=== PATIENT | male | born 1960 | race Caucasian/White ===

== ENCOUNTER 2018-09-02 21:05 | Emergency (ER) | payer OTHER ==
[~2018-09-02] VITALS: Ht 188 cm; Wt 79.4 kg
[2018-09-02 21:20] VITALS: BP 133/75
--- NOTE | 2018-09-02 21:23 | NUR ---
TO LOBBY A/W BED AMBULATORY
--- NOTE | 2018-09-02 22:21 | NUR ---
PT TAKEN TO BED 2
[2018-09-02] MEDS ORDERED: KETOROLAC 30 MG/ML VIAL IM ONE (22:35)
[2018-09-02] MEDS ORDERED: HYDROcodone/APAP 5/325 MG 1 TAB TAB PO ONE (22:35)
[2018-09-02] MEDS ORDERED: predniSONE 20 MG TAB PO ONE (22:35)
--- NOTE | 2018-09-02 22:55 | NUR ---
PT TO ED WITH C/O BILATERAL RASH INCREASING IN SEVERITY X 3 DAYS. RED, CRACKED RASH NOTED TO BILATERAL HANDS/ARMS. SOME BLEEDING NOTED UPON MOVEMENT. PT PLACED INTO BED, PENDING MD VIRAMONTES.
--- NOTE | 2018-09-02 23:16 | NUR ---
OFFERED PT H[employer] RESOURCE PACKET. PT HAS WEATHER APPROPRAITE CLOTHING. MEAL AND BUSPASS OFFERED UPON D/C.
--- NOTE | 2018-09-02 23:30 | NUR ---
Patient discharged with v/s stable. Written and verbal after care instructions given and explained. Patient alert, oriented and verbalized understanding of instructions. Ambulatory with steady gait. All questions addressed prior to discharge. ID band removed. Patient advised to follow up with PMD. Rx of KEFLEX, NORCO, PREDNISONE given. Patient educated on indication of medication including possible reaction and side effects. Opportunity to ask questions provided and answered.
[2018-09-02 23:31] VITALS: BP 133/75
== END 2018-09-02 23:30 | disposition home or self-care (01) ==
LOC: MED 21:05 → EDBD 21:05 → MED 23:30
DX: L23.9 Allergic contact dermatitis, unspecified cause (principal)
CPT/HCPCS: 99283; J1885; J7512

== ENCOUNTER 2018-09-15 09:47 | Inpatient (IN) | payer OTHER ==
[~2018-09-15] VITALS: Ht 188 cm; Wt 76.3 kg
[2018-09-15 09:50] VITALS: BP 174/102
--- NOTE | 2018-09-15 09:58 | NUR ---
PT AMBULATED TO BED 7
--- NOTE | 2018-09-15 10:04 | NUR ---
PT BIB SELF C/O LEFT HAND PAIN X 1 DAY. LT HAND SWOLLEN, ERYTHEMA, MACERATED, WITH SKIN TEARS. PT REPORTS 10/10 PAIN TO LT HAND THAT RADIATES UP LT ARM AND PAIN INCREASES WITH HAND MOVEMENT. PT ADMITS TO DRINKING AND USING ILLEGAL DRUGS ON "OCCASION". VSS. ER TO SEE PT. MED HX: CHEMICAL DAVIS TO HANDS X 12 YRS
[2018-09-15] MEDS ORDERED: NACL 0.9% 2,000 ML IV SCH (10:12)
[2018-09-15] MEDS ORDERED: DEXAMETHASONE 10 MG/ML VIAL IVP ONE (10:15)
[2018-09-15] MEDS ORDERED: VANCOMYCIN 1,000 MG in DEXTROSE 5% 250 ML IV ONE (10:15)
[2018-09-15] MEDS ORDERED: PIPERACILLIN/TAZOBACTAM 3.375 GM in DEXT 5% MINI-BAG PLUS 50 ML IV ONE (10:15)
[2018-09-15] MEDS ORDERED: diphenhydrAMINE 50 MG/ML VIAL IVP ONE (10:15)
[2018-09-15] MEDS ORDERED: HYDROcodone/APAP 5/325 MG 1 TAB TAB PO ONE (10:15)
[2018-09-15] MEDS ORDERED: hydrOXYzine HCL 25 MG TAB PO ONE (10:15)
--- NOTE | 2018-09-15 10:25 | NUR ---
PT WENT TO X-RAY AT THIS TIME
--- NOTE | 2018-09-15 10:33 | NUR ---
RT AT BEDSIDE AT THIS TIME FOR ABG
--- NOTE | 2018-09-15 10:40 | NUR ---
LAB AT BEDSIDE
[2018-09-15] MEDS ORDERED: VANCOMYCIN 1,000 MG VIAL ONE ×2 (10:55→23:29)
[2018-09-15] MEDS ORDERED: PIPERACILLIN/TAZOBACTAM 3.375 GM VIAL IV ONE (10:55)
[2018-09-15 10:56] LABS: BASOPHILS # (AUTO) 0.1 K/uL (0.00-0.22); BASOPHILS % (AUTO) 0.9 % (0.0-2.0); EOSINOPHILS # (AUTO) 0.2 K/uL (0-0.4); EOSINOPHILS % (AUTO) 2.9 % (0.0-4.0); HEMATOCRIT 36.6 % (36-52); HEMOGLOBIN 12.4 g/dL (12.0-18.0); LYMPHOCYTES # (AUTO) 1.8 K/uL (2.0-11.5); LYMPHOCYTES % (AUTO) 22.2 % (20.5-51.1); MEAN CORPUSCULAR HEMOGLOBIN 31 pg (27-31); MEAN CORPUSCULAR HGB CONC 34 g/dL (33-37); MEAN CORPUSCULAR VOLUME 92.7 fL (80-94); MONOCYTES # (AUTO) 0.6 K/uL (0.8-1.0); MONOCYTES % (AUTO) 7.4 % (1.7-9.3); NEUTROPHILS # (AUTO) 5.5 K/uL (1.8-7.7); NEUTROPHILS % (AUTO) 66.6 % (42.2-75.2); PLATELET COUNT (AUTO) 280 K/uL (140-450); RED BLOOD CELL COUNT(AUTO) 3.95 MIL/uL (4.20-6.10); RED CELL DISTRIBUTION WIDTH 15.7 % (11.6-13.7); WHITE BLOOD COUNT (AUTO) 8.3 K/uL (4.8-10.8)
[2018-09-15 11:06] LABS: PROTHROMBIN TIME 9.2 secs (10.8-13.4)
[2018-09-15 11:09] LABS: ACETONE, SERUM NEGATIVE (NEGATIVE)
[2018-09-15 11:18] LABS: ANION GAP 13.7 (8-16); CARBON DIOXIDE 24.8 mmol/L (21-32); CHLORIDE 100 mmol/L (98-107); CREATININE 0.9 mg/dL (0.7-1.3); GFR ARICAN-AMERICAN 111 mL/min (>90); GLUCOSE 96 mg/dL (74-106); POTASSIUM 3.5 mmol/L (3.5-5.1); SODIUM SERUM 135 mmol/L (136-145); UREA NITROGEN, BLOOD 15 mg/dL (7-18)
--- NOTE | 2018-09-15 11:19 | NUR ---
PT IN BED, C/O HAND PAIN AT 10/10, ADMINISTERED PO NORCO. PT HYPERTENSIVE AT 201/118, DENEIS CP, SOB, N/V, HEADACHE, OR VISUAL DISTRUBANCES. ER MD NOTIFIED.
[2018-09-15] MEDS ORDERED: cloNIDine 0.1 MG TAB PO ONE (11:20)
--- NOTE | 2018-09-15 11:20 | NUR ---
PT ATTEMPTING TO PROVIDE URINE SAMPLE VIA URINAL AT THIS TIME
[2018-09-15 11:22] LABS: ALBUMIN 3.3 g/dL (3.4-5.0); ASPARTATE AMINOTRANSFERASE 22 U/L (15-37); MAGNESIUM 1.7 mg/dL (1.8-2.4); TOTAL BILIRUBIN 0.3 mg/dL (0.0-1.0)
--- NOTE | 2018-09-15 11:25 | NUR ---
CALLED PHARMACY FOR LISINOPRIL
[2018-09-15 11:50] LABS: URIC ACID 6.8 mg/dL (2.6-7.2)
--- NOTE | 2018-09-15 12:24 | NUR ---
PT O2 DESATING DOWN TO 92%, PT SLEEPING IN BED, AROUSABLE TO NAME, ADJUSTED PT IN BED, PUT IN HIGH COLMENARES'S, O2 SAT UP TO 95%, RR EVEN, NON-LABORED, BREATH SOUNDS CLEAR.
[2018-09-15 12:25] LABS: APPEARANCE,URINE HAZY (CLEAR); BILIRUBIN,URINE NEGATIVE (NEGATIVE); BLOOD, URINE NEGATIVE (NEGATIVE); COLOR,URINE YELLOW (YELLOW); LEUKOCYTE ESTERASE ,URINE NEGATIVE (NEGATIVE); NITRITE, URINE NEGATIVE (NEGATIVE); UGLUCOSE NEGATIVE (NEGATIVE)
[2018-09-15] MEDS ORDERED: MORPHINE SULFATE 4 MG/ML SYR IVP PRN (12:35)
[2018-09-15] MEDS ORDERED: ACETAMINOPHEN 325 MG TAB PO PRN (12:35)
[2018-09-15] MEDS ORDERED: MORPHINE SULFATE 2 MG/ML SYR IVP PRN (12:35)
[2018-09-15] MEDS ORDERED: LORazepam 2 MG/ML VIAL IVP PRN (12:35)
[2018-09-15] MEDS ORDERED: VANCOMYCIN PER PHARMACY MC PRN (12:40)
[2018-09-15] MEDS ORDERED: ZOLPIDEM 5 MG TAB PO PRN (12:40)
[2018-09-15 12:50] LABS: BARBITURATE, URINE NEGATIVE ng/ml (NEG <=200); BENZODIAZEPINE, URINE NEGATIVE ng/mL (NEG <=200); CANNABINOID, URINE POSITIVE ng/mL (NEG <=50); COCAINE, URINE NEGATIVE ng/mL (NEG <=300); OPIATE, URINE NEGATIVE ng/mL (NEG <=2000); PHENCYCLIDINE SCREEN,URINE NEGATIVE ng/mL (NEG <=25)
[2018-09-15 13:15] VITALS: BP 155/81
--- NOTE | 2018-09-15 13:15 | NUR ---
PATIENT ARRIVED UNIT VIA [facility] ACCOMPANIED BY WINIFRED CORTEZ RN. PATIENT IS AAOX4. DENIED PAIN AND SOB AT THIS TIME. RESPIRATION ON RA. NO SIGNS OF DISTRESS NOTED. IV ON R ARM 22G, CLEAN AND INTACT, INFUSING PER MD ORDER. REDNESS ON L HAND NOTED, WARM TO TOUCH. DRY SCABS ON BOTH ARMS NOTED. ABLE TO AMBULATE WITH STANDBY ASSISTANCE. TRANSFERRED PATIENT FROM [facility] TO BED AND POSITIONED PATIENT COMFORTABLY. ORIENTED PATIENT TO THE ROOM, AND HOW TO USE THE CALL LIGHT, TV, BED REMOTE, BATHROOM AND TELEPHONE. PATIENT VERBALIZED OK. VITAL SIGNS TAKEN AND MRSA NARES COLLECTED. PATIENT VERBALIZED UNDERSTANDING. PROVIDED URANAL. BED IN LOW POSITION AND CALL LIGHT WITHIN REACH. INSTRUCTED PATIENT TO USE THE CALL LIGHT FOR ANY ASSISTANCE AND PATIENT WAS AWARE.
--- NOTE | 2018-09-15 13:15 | NUR ---
Patient will be admitted to care of HENDERSON. Admited to MED/SURG VIA [facility] W/ VSS. Will go to room 111A. Belongings list completed. Report to BETITO ZARAGOZA.
[2018-09-15] MEDS: NACL 0.9% 1,000 ML IV SCH ×2 (13:21→23:33)
--- NOTE | 2018-09-15 13:21 | NUR ---
STARTED IVF PER MD ORDER, PATIENT SAID HE FEELS VERY TIRED AND WOULD LIKE TO TAKE A NAP. NO SIGNS OF DISTRESS NOTED. SAFETY MEASURES IN PLACE. BED IN LOW POSITION AND CALL LIGHT WITHIN REACH. INSTRUCTED PATIENT TO USE THE CALL LIGHT FOR ANY ASSISTANCE. PATIENT WAS AWARE.
--- NOTE | 2018-09-15 15:35 | NUR ---
PATIENT COMPLAINED 6/10 PAIN ON HIS LEFT HAND, ADMINISTERED PRN MORPHINE PER MD ORDER, PATIENT TOLERATED WELL. PATIENT IS RESTING ON BED AT THIS TIME. SAFETY MEASURES IN PLACE. BED IN LOW POSITION AND CALL LIGHT WITHIN REACH. INSTRUCTED PATIENT TO USE THE CALL LIGHT FOR ANY ASSISTANCE AND PATIENT WAS AWARE.
--- NOTE | 2018-09-15 15:55 | NUR ---
PAGED DR VILLANUEVA FOR PATIENT BP 167/91. PATIENT IS RESTING ON BED. DENIED PAIN. NO SIGNS OF DISTRESS NOTED. SAFETY MEASURES IN PLACE.
[2018-09-15 16:00] VITALS: BP 167/91
--- NOTE | 2018-09-15 16:02 | NUR ---
RECEIVED A CALL BACK FROM DR VILLANUEVA. NOTIFIED DR VILLANUEVA THAT PATIENT'S BP 167/91 AND PULSE 76. PATIENT DENIED PAIN. PATIENT RECEIVED ONE DOSE OF CATAPRES 0.1 MG IN ER. RECEIVED TORB ORDER FROM DR VILLANUEVA THAT ADMINISTER CATAPRES 0.2 MG PRN Q8H FOR SYSTOLIC BP [address] VILLANUEVA ALSO ORDERED TO ADMINISTER ONE DOSE OF CATAPRES 0.2 MG TO PATIENT FOR HIS BP NOW. READ BACK AND CONFIRMED ORDER WITH DR VILLANUEVA.
[2018-09-15] MEDS ORDERED: cloNIDine 0.1 MG TAB PO PRN (16:05)
--- NOTE | 2018-09-15 16:23 | NUR ---
I CALLED DR VILLANUEVA REGARDING THE OBS STATUS ,EXPLAIN PT IS QUALIFIED FOR INPT STATUS ,PER DR VILLANUEVA OK TO CHANGE IT AND CHANGED TO INPT STATUS.
--- NOTE | 2018-09-15 16:29 | NUR ---
ADMINISTERED PRN CATAPRES PER MD ORDER FOR PATIENT'S BP 167/91 AND PULSE 76, PATIENT TOLERATED WELL. PATIENT IS RESTING ON BED AT THIS TIME. PATIENT STATED THAT HIS BROTHER IS COMING TO VISIT HIM AND HE WANTS TO KNOW WHAT ROOM IS HE IN. INFORMED THAT HE IS IN ROOM 111A. PATIENT VERBALIZED OK. SAFETY MEASURES IN PLACE. BED IN LOW POSITION AND CALL LIGHT WITHIN REACH.
--- NOTE | 2018-09-15 17:36 | NUR ---
PATIENT IS RESTING ON BED AT THIS TIME. AROUSABLE TO VOICE. RESPIRATION EVEN AND UNLABORED ON RA. NO SIGNS OF DISTRESS NOTED. SAFETY MEASURES IN PLACE. BED IN LOW POSITION AND CALL LIGHT WITHIN REACH. INSTRUCTED PATIENT TO USE THE CALL LIGHT FOR ANY ASSISTANCE AND PATIENT WAS AWARE.
--- NOTE | 2018-09-15 18:04 | NUR ---
REASSESSED BP AND RECEIVED 150/75 AND PULSE 75. PATIENT IS EATING DINNER ON BED AT THIS TIME. DENIED PAIN AND SOB. NO SIGNS OF DISTRESS NOTED. SAFETY MEASURES IN PLACE. BED IN LOW POSITION AND CALL LIGHT WITHIN REACH. INSTRUCTED PATIENT TO USE THE CALL LIGHT FOR ANY ASSISTANCE AND PATIENT WAS AWARE.
--- NOTE | 2018-09-15 19:18 | NUR ---
ENDORSED PATIENT AT BEDSIDE TO FINISHED HARDWARE ERECTOR NURSE FOR CONTINUITY OF CARE. PATIENT IS AWAKE AND APPLYING LOTION ON HIS HANDS. NO SIGNS OF DISTRESS NOTED. SAFETY MEASURES IN PLACE. BED IN LOW POSITION AND CALL LIGHT WITHIN REACH.
--- NOTE | 2018-09-15 19:20 | NUR ---
Received endorsement from AM shift RN; patient A/Ox4, able to make needs known, bedrest. Introduced self, updated board. No SOB or distress noted, on room air. IV site on right forearm, 22 gauge, intact, running IVF at 80mL/hr. Edema noted on left hand and skin dryness on bilateral upper extremities. Bed in the lowest position, call light within reach. Initial assessment done. Will continue to monitor.
--- NOTE | 2018-09-15 21:50 | NUR ---
Rounds done; patient asleep, visible chest rise and fall noted.
[2018-09-15] MEDS: VANCOMYCIN 1GM/DEXT 5% PREMIX 200 ML IV SCH (23:33)
--- NOTE | 2018-09-15 23:55 | NUR ---
Vitals taken, no distress noted. Patient asleep, visible chest rise and fall noted.
[2018-09-16] VITALS: BP 135/79
--- NOTE | 2018-09-16 02:00 | NUR ---
Checks made; no distress noted.
--- NOTE | 2018-09-16 04:50 | NUR ---
Frequent check made; patient asleep, eyes closed, visible chest rise and fall noted.
--- NOTE | 2018-09-16 07:10 | NUR ---
Endorsed patient to AM shift RN for continuity of care; patient in stable condition.
--- NOTE | 2018-09-16 07:20 | NUR ---
PATIENT WAS SLEEPING COMFORTABLY, EASILY AROUSABLE BY NAME. RESPIRATION EVEN, UNLABOR ON ROOM AIR. SKIN DRY AND WARM. IV PATENT AND INTACT. DENIED PAIN, SOB. PLAN OF CARE WAS DISCUSSED WITH PATIENT. BED AT LOW POSITION, SIDE RAILS UP. CALL LIGHT WITHIN REACH.
[2018-09-16 08:00] VITALS: BP 157/82
[2018-09-16] MEDS ORDERED: LISINOPRIL 20 MG TAB PO ONE (09:00)
[2018-09-16 09:02] LABS: ANION GAP 13.6 (8-16); CARBON DIOXIDE 24.3 mmol/L (21-32); CREATININE 0.8 mg/dL (0.7-1.3); POTASSIUM 3.9 mmol/L (3.5-5.1)
--- NOTE | 2018-09-16 09:10 | NUR ---
PATIENT HAS BEEN SCREENED AND CATEGORIZED LOW NUTRITION RISK. PATIENT WILL BE SEEN WITHIN 7 DAYS OF ADMISSION. 09/22/[address]
--- NOTE | 2018-09-16 10:00 | NUR ---
PATIENT WAS AWAKE, ALERT. RESPIRATION EVEN, UNLABOR ON ROOM AIR. NO DISTRESS NOTED AT THIS TIME
--- NOTE | 2018-09-16 10:21 | NUR ---
WOUND CARE EVALUATION NOTE: PT. HAS NO OPEN ACTIVE WOUND, ALL SKIN INTACT. RIGHT HAND CELLULITIS FROM WRIST DOWN, SKIN INTACT, ERYTHEMA, SWELLING GOOD ROM. RECOMMENDATIONS: -KEEP RIGHT UPPER ARM ELEVATED TOLERATED -KEEP L/R HANDS SKIN GOOD MOISTURE AND CLEAN AT ALL TIMES -OFFLOAD BILATERAL HEELS BY PLACING PILLOWS UNDER CALVES UNLESS OTHERWISE CONTRAINDICATED -PRESSURE REDISTRIBUTION SURFACE THERAPY -CONTINUE TO FOLLOW RD RECOMMENDATIONS
[2018-09-16] MEDS ORDERED: MAG SULF 2000 MG/WATER PREMIX 50 ML IV SCH (11:00)
[2018-09-16] MEDS ORDERED: SULF-59 PO (11:09)
--- NOTE | 2018-09-16 11:38 | NUR ---
FOLLOWUP APPOINTMENT MADE TO SEE PCP [phone] SPOKE WITH BAILEY, APPOINTMENT DONE ON 10/08/18 2PM AT [address], [place] [address]. COPY OF FOLLOW-UP APPOINTMENT GIVEN TO PATIENT, VERBALIZED UNDERSTANDING.
[2018-09-16] MEDS: VANCOMYCIN 1GM/DEXT 5% PREMIX 200 ML IV SCH (12:00)
--- NOTE | 2018-09-16 12:00 | NUR ---
PATIENT WAS SLEEPING COMFORTABLY. RESPIRATION EVEN, UNLABOR ON ROOM AIR. NO DISTRESS NOTED AT THIS TIME
--- NOTE | 2018-09-16 13:30 | NUR ---
PATIENT WAS FOUND WALKING THE HALLWAY, REFUSED TO GO BACK TO HIS ROOM. MULTIPLE ATTEMPTS WERE MADE TO EXPLAIN TO PATIENT THAT HE IS AT RISK FOR FALL, HE NEEDS TO GO BACK TO HIS ROOM. PATIENT STARTED SCREAMING "LEAVE ME ALONE". SECURITY WAS CALLED. DR. AVALOS WAS MADE AWARE. CARE PROVIDER MAGY COBIAN WAS CALLED AND LEFT A VOICEMAIL REGARDING HIS CONDITION. Addendum: 09/16/18 at 1558 by Josselyn Adams RN WRONG PATIENT
--- NOTE | 2018-09-16 14:00 | NUR ---
PATIENT WAS SLEEPING COMFORTABLY. RESPIRATION EVEN, UNLABOR ON ROOM AIR. NO DISTRESS NOTED
--- NOTE | 2018-09-16 14:30 | NUR ---
PATIENT WAS AGITATED, REFUSED TO GO BACK TO HIS ROOM. PATIENT WAS ESCORTED BACK TO ROOM BY SECURITY. MEDS WERE GIVEN PER ORDER. PATIENT WAS SCREAMING, KICKING, AND HITTING STAFF. DR. AVALOS WAS AT BEDSIDE. Addendum: 09/16/18 at 1558 by Josselyn Adams RN WRONG PATIENT
--- NOTE | 2018-09-16 15:30 | NUR ---
DISCHARGE INSTRUCTION AND PRESCRIPTION WERE GIVEN AND EXPLAINED TO PATIENT. PATIENT VERBALIZED UNDERSTANDING. IV WAS REMOVED, CATHETER INTACT, NO ACTIVE BLEEDING SEEN. PATIENT STATED THAT HE WILL GO BACK TO HIS [facility] ON [address]. BUS PASS WAS PROVIDED. PATIENT WAS ESCORTED OUT BY STAFF. ALL BELONGINGS WERE TAKEN WITH PATIENT. PATIENT IS STABLE AT THIS TIME
== END 2018-09-16 15:30 | disposition home or self-care (01) | DRG 383 ==
LOC: MED 09:47 → MTU 12:38 → OBSVTOIN 15:59 → INTOOBSV 15:59 → OBSVTOIN 16:02
PROVIDERS: ADMIT Internal Medicine Pulmonary Disease; ATTEND Internal Medicine Pulmonary Disease
DX: L03.114 Cellulitis of left upper limb (principal); E83.42 Hypomagnesemia; F10.129 Alcohol abuse with intoxication, unspecified; I10 Essential (primary) hypertension; F19.10 Other psychoactive substance abuse, uncomplicated
CPT/HCPCS: 96361; 96365; 96375; 99285; G0378; 36415; 36600; 73110; 73130; 80048; 80053; 80202; 80305; 81003; 82009; 82550; 82803; 83605; 83735; 84484; 84550; 85025; 85610; 85651; 86140; 87040; 87081; 87086; 93005; C1758; G0482; J1100; J1200; J2270; J2543; J3370; J3475; J7030; J7060

== ENCOUNTER 2018-10-02 09:05 | Inpatient (IN) | payer OTHER ==
[~2018-10-02] VITALS: Ht 188 cm; Wt 77.6 kg
[~2018-10-02 09:05] MED LIST: SULF-59 PO
--- NOTE | 2018-10-02 09:11 | NUR ---
Patient ambulated to bed 1. RN evaluating patient at bedside.
--- NOTE | 2018-10-02 09:13 | NUR ---
PT BIB SELF C/O SWELLING, REDNESS AND PAINFUL TO BOTH HANDS ON AND OFF X 12 YEARS. GETTING WORSE LAST NIGHT. PT TOOK ABX( UNABLE TO RECALL NAME) . 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 . DENIES N/V/D; SKIN IS PINK/WARM/DRY; AAOX4 WITH EVEN AND STEADY GAIT; LUNGS CLEAR BL; HR EVEN AND REGULAR; PT DENIES ANY FEVER, CP, SOB, OR COUGH AT THIS TIME; PATIENT STATES PAIN OF 8/10 AT THIS TIME; VSS; PATIENT POSITIONED FOR COMFORT; HOB ELEVATED; BEDRAILS UP X2; BED DOWN. ER MD MADE AWARE OF PT STATUS. PT REFUSED BP CHECK DUE TO HIS SWOLLEN HANDS.
[2018-10-02 10:58] LABS: BASOPHILS # (AUTO) 0.1 K/uL (0.00-0.22); BASOPHILS % (AUTO) 0.9 % (0.0-2.0); EOSINOPHILS # (AUTO) 0.2 K/uL (0-0.4); EOSINOPHILS % (AUTO) 2.8 % (0.0-4.0); HEMATOCRIT 38.9 % (36-52); LYMPHOCYTES # (AUTO) 1.5 K/uL (2.0-11.5); MEAN CORPUSCULAR HEMOGLOBIN 31 pg (27-31); MEAN CORPUSCULAR HGB CONC 34 g/dL (33-37); MEAN CORPUSCULAR VOLUME 93.7 fL (80-94); MONOCYTES # (AUTO) 0.6 K/uL (0.8-1.0); MONOCYTES % (AUTO) 6.8 % (1.7-9.3); NEUTROPHILS # (AUTO) 6.4 K/uL (1.8-7.7); NEUTROPHILS % (AUTO) 72.5 % (42.2-75.2); PLATELET COUNT (AUTO) 329 K/uL (140-450); RED BLOOD CELL COUNT(AUTO) 4.15 MIL/uL (4.20-6.10); RED CELL DISTRIBUTION WIDTH 15.4 % (11.6-13.7); WHITE BLOOD COUNT (AUTO) 8.8 K/uL (4.8-10.8)
--- NOTE | 2018-10-02 11:00 | NUR ---
PER DR. MAGALLON, KEEP PT NPO.
[2018-10-02 11:05] LABS: ANION GAP 15.4 (8-16); CARBON DIOXIDE 23.3 mmol/L (21-32); CREATININE 0.9 mg/dL (0.7-1.3); POTASSIUM 3.7 mmol/L (3.5-5.1)
[2018-10-02 11:10] LABS: ALBUMIN 3.4 g/dL (3.4-5.0); TOTAL BILIRUBIN 0.4 mg/dL (0.0-1.0)
--- NOTE | 2018-10-02 11:21 | NUR ---
PER ADMITTING, SECURITY HAVE PATIENT'S BIKE.
[2018-10-02] MEDS ORDERED: MORPHINE SULFATE 4 MG/ML SYR IVP ONE ×2 (12:05→12:20)
[2018-10-02] MEDS ORDERED: cefTRIAXone 1,000 MG VIAL ONE (12:31)
--- NOTE | 2018-10-02 12:55 | NUR ---
EDUCATED PT OF V/S AND INFORMED PT OF POC. PT VERBALIZED UNDERSTANDING. OK TO CHECK BP AT THIS TIME. WILL CONTINUE TO MONITOR
--- NOTE | 2018-10-02 13:49 | NUR ---
Pt transferred to Med/Surg via W/C WITH MILA CABRAL .
[2018-10-02 14:00] VITALS: BP 158/77
--- NOTE | 2018-10-02 14:00 | NUR ---
Patient will be admitted to care of DR. BOB. Admited to . Will go to room 115. Belongings list completed. Report to MILA COSTA.
--- NOTE | 2018-10-02 14:00 | NUR ---
RECEIVED PT FROM ED NURSE MISHA. PT IS AWAKE AND ALERT, NO S/S OF ACUTE DISTRESS NOTED. PT IS ON ROOM AIR. SKIN IS INTACT, HOWEVER, BILATERAL HANDS ARE NOTED TO BE SWOLLEN, RED, AND DRY, THERE IS SOME SKIN FISSURING. PT C/O 10/10 PAIN IN HIS HANDS. WILL PAGE DR BOB FOR PAIN MEDICINE ORDERS. IV SITE IS IN THE LFA 20 G. PT IS ABLE TO AMBULATE INDEPENDENTLY. CALL LIGHT GIVEN WITHIN REACH, MRSA NARES SWAB TAKEN. WILL CONTINUE TO MONITOR.
--- NOTE | 2018-10-02 14:10 | NUR ---
PT REPORTS BEING VERY HUNGRY, SAYS HE DID NOT HAVE ANYTHING TO EAT IN THE ED. SANDWICH AND OJ PROVIDED. WILL PAGE DR BOB REGARDING DIET ORDERS.
--- NOTE | 2018-10-02 14:47 | NUR ---
PAGED DR BBO FOR DIET ORDER AND PAIN MEDICINE. PT IS C/O SEVERE PAIN (12/24) IN HIS HANDS. AWAITING CALL BACK.
--- NOTE | 2018-10-02 15:15 | NUR ---
PHOTOS TAKEN OF BILATERAL HANDS. I TALKED TO DIRECTOR KOHLER ABOUT WHETHER PT NEEDS A SPECIFIC TOPICAL SKIN CARE. WE CONSULTED THE WOUND CARE NURSE, YARIEL, SHE RECOMMENDS PT'S HANDS TO REMAIN OPEN TO AIR. WILL ASK DR BOB IF HE WOULD LIKE A WOUND CARE EVALUATION.
--- NOTE | 2018-10-02 16:32 | NUR ---
STILL WAITING FOR MD TO RETURN PAGE, REGARDING PAIN MEDICINE AND DIET ORDER FOR PT.
--- NOTE | 2018-10-02 16:40 | NUR ---
PT IS SLEEPING AT THIS TIME.
--- NOTE | 2018-10-02 17:15 | NUR ---
DR BOB RETURNED MY CALL, HE GAVE MEDICATION AND DIETARY ORDERS FOR PT ADMISSION. ALSO ORDERED A WOUND CARE EVALUATION, AND A CBC/BMP FOR TOMORROW MORNING.
[2018-10-02] MEDS ORDERED: ACETAMINOPHEN 650 MG/20.3 ML UDC PO PRN (17:20)
[2018-10-02] MEDS ORDERED: ONDANSETRON 4 MG/2 ML VIAL IVP PRN (17:20)
[2018-10-02] MEDS: HYDROcodone/APAP 5/325 MG 1 TAB TAB PO PRN ×2 (18:01→23:17)
--- NOTE | 2018-10-02 18:27 | NUR ---
PT EATING DINNER AT THIS TIME.
--- NOTE | 2018-10-02 19:20 | NUR ---
RECEIVED BEDSIDE REPORT FROM DAY SHIFT NURSE. PATIENT IS AWAKE, ALERT, AND COOPERATIVE. RESPIRATION EVEN UNLABORED ON ROOM AIR. NO DISTRESS NOTED. SKIN IS WARM AND DRY. BILATERAL HAND CELLULITIS NOTED. IV PATENT AND INTACT. SALINE LOCKED. PLAN OF CARE WAS DISCUSSED. ALL SAFETY MEASURES IN PLACE. CALL LIGHT WITHIN REACH AND VERBALIZES ITS USE. WILL CONTINUE TO MONITOR.
--- NOTE | 2018-10-02 19:20 | NUR ---
PT ENDORSED TO ACCOUNT SERVICE ASSOCIATE IN STABLE CONDITION.
--- NOTE | 2018-10-02 20:00 | NUR ---
INITIAL ASSESSMENT DONE. VITALS WERE TAKEN. NO DISTRESS NOTED. PATIENT IN STABLE CONDITION. WILL CONTINUE TO MONITOR.
[2018-10-02] MEDS: methylPREDNISolone SS 40 MG/ML VIAL IVP SCH (20:29)
--- NOTE | 2018-10-02 21:00 | NUR ---
ALL SCHEDULED MEDS WERE GIVEN PER ORDER. NO ASE NOTED.WILL CONTINUE TO MONITOR.
--- NOTE | 2018-10-02 22:30 | NUR ---
PATIENT IN BED WATCHING TV RESPIRATION EVEN UNLABORED ON ROOM AIR. NO DISTRESS NOTED. WILL CONTINUE TO MONITOR.
--- NOTE | 2018-10-02 23:15 | NUR ---
PATIENT COMPLAINED OF PAIN 8/10 IN HIS LEFT HAND. PRN PAIN MEDS ADMINISTERED PER ORDER. WILL CONTINUE TO MONITOR.
[2018-10-03] VITALS: BP 139/80
--- NOTE | 2018-10-03 | NUR ---
VITALS WERE TAKEN. REASSESSED PAIN. PATIENT VERBALIZE REDUCE PAIN 3/10. PATIENT IN STABLE CONDITION. WILL CONTINUE TO MONITOR.
--- NOTE | 2018-10-03 02:00 | NUR ---
CHECKED PATIENT. PATIENT SLEEPING RESPIRATION EVEN UNLABORED ON ROOM AIR. NO DISTRESS NOTED. WILL CONTINUE TO MONITOR.
[2018-10-03] MEDS: methylPREDNISolone SS 40 MG/ML VIAL IVP SCH ×3 (05:07→20:17)
[2018-10-03] MEDS: HYDROcodone/APAP 5/325 MG 1 TAB TAB PO PRN ×3 (05:13→13:53)
--- NOTE | 2018-10-03 05:14 | NUR ---
ALL SCHEDULED MEDS GIVEN PER ORDER. PATIENT COMPLAINED OF HAND PAIN /10. PAIN MED ADMINISTERED PER ORDER. WILL CONTINUE TO MONITOR.
[2018-10-03 07:09] LABS: BASOPHILS % (AUTO) 0.3 % (0.0-2.0); EOSINOPHILS % (AUTO) 0.1 % (0.0-4.0); HEMATOCRIT 42.2 % (36-52); LYMPHOCYTES # (AUTO) 0.7 K/uL (2.0-11.5); LYMPHOCYTES % (AUTO) 15.1 % (20.5-51.1); MEAN CORPUSCULAR HEMOGLOBIN 31 pg (27-31); MEAN CORPUSCULAR HGB CONC 33 g/dL (33-37); MEAN CORPUSCULAR VOLUME 94.5 fL (80-94); MONOCYTES # (AUTO) 0.1 K/uL (0.8-1.0); MONOCYTES % (AUTO) 2.2 % (1.7-9.3); NEUTROPHILS # (AUTO) 3.8 K/uL (1.8-7.7); NEUTROPHILS % (AUTO) 82.3 % (42.2-75.2); PLATELET COUNT (AUTO) 331 K/uL (140-450); RED BLOOD CELL COUNT(AUTO) 4.46 MIL/uL (4.20-6.10); RED CELL DISTRIBUTION WIDTH 15.4 % (11.6-13.7); WHITE BLOOD COUNT (AUTO) 4.6 K/uL (4.8-10.8)
[2018-10-03 07:23] LABS: POTASSIUM 4.5 mmol/L (3.5-5.1)
--- NOTE | 2018-10-03 07:26 | NUR ---
ENDORSED PATIENT TO DAY SHIFT NURSE FOR CONTINUITY OF CARE. PATIENT IN STABLE CONDITION.
--- NOTE | 2018-10-03 07:28 | NUR ---
RECEIVED BEDSIDE REPORT FROM MILA TIERNEY. PATIENT ON MED SURG FLOOR WITH STANDARD PRECAUTIONS IN PLACE. PATIENT AAOX4, ON ROOM AIR, NO DISTRESS NOTED. PATIENT AMBULATORY AND CONTINENT. B/L HANDS CELLULITIS. IV ON L FA 20G, SALINE LOCK, IV PATENT AND INTACT. BED IN LOW POSITION, CALL LIGHT WITHIN REACH, SIDE RAILS X2 UP
[2018-10-03 07:35] LABS: ANION GAP 12.9 (8-16); CARBON DIOXIDE 26.6 mmol/L (21-32); CREATININE 0.9 mg/dL (0.7-1.3)
[2018-10-03 08:00] VITALS: BP 149/91
--- NOTE | 2018-10-03 08:45 | NUR ---
PATIENT HAS BEEN SCREENED AND CATEGORIZED HIGH NUTRITION RISK. PATIENT WILL BE SEEN WITHIN 7 DAYS OF ADMISSION. 10/09/18 Addendum: 10/03/18 at [address] PATIENT HAS BEEN SCREENED AND CATEGORIZED LOW NUTRITION RISK. PATIENT WILL BE SEEN WITHIN 7 DAYS OF ADMISSION. 10/09/18
[2018-10-03] MEDS: LISINOPRIL 20 MG TAB PO SCH (09:15)
--- NOTE | 2018-10-03 09:15 | NUR ---
ADMINISTERED SCHEDULED MED. PATIENT TOLERATED WELL
--- NOTE | 2018-10-03 12:35 | NUR ---
PATIENT SITTING UP IN BED EATING LUNCH. ADMINISTERED SCHEDULED MEDS. PATIENT TOLERATED WELL
--- NOTE | 2018-10-03 14:03 | NUR ---
PATIENT AMBULATED TO RESTROOM, ON ROOM AIR, NO DISTRESS NOTED
[2018-10-03 16:00] VITALS: BP 158/72
--- NOTE | 2018-10-03 17:03 | NUR ---
PATIENT WATCHING TV, ON ROOM AIR, NO DISTRESS NOTED
[2018-10-03] MEDS: oxyCODONE 5 MG TAB PO PRN (18:09)
--- NOTE | 2018-10-03 19:25 | NUR ---
RECEIVED PT IN STABLE CONDITION FROM AM NURSE. AWAKE,ALERT AND ORIENTED X4. MED SURG PT. WITH NO C/O ANY PAIN A THIS TIME. KEVIN HANDS SWOLLEN WITH CELLULITIS. PLAN OF CARE DISCUSSED AND VERBALIZED UNDERSTANDING. BED ON LOW POSITION. FREQ CHECK NEEDED. CALL LIGHT AND URINAL PLACED WITHIN EASY REACH. WILL CONTINUE TO MONITOR.
--- NOTE | 2018-10-03 21:00 | NUR ---
ANTIBIOTICS DUE GIVEN. NO C/O ANY DISCOMFORT NOTED.
[2018-10-04 00:10] VITALS: BP 158/78
[2018-10-04] MEDS: HYDROcodone/APAP 5/325 MG 1 TAB TAB PO PRN ×3 (00:13→16:55)
--- NOTE | 2018-10-04 01:28 | NUR ---
MADE ROUNDS. PT IS ASLEEP. NO S/S OF ANY DISCOMFORT NOTED.
--- NOTE | 2018-10-04 02:38 | NUR ---
MADE ROUNDS. PT IS ASLEEP. NO S/S OF ANY DISCOMFORT NOTED.
--- NOTE | 2018-10-04 04:00 | NUR ---
MADE ROUNDS. PT IS ASLEEP. NO S/S OF ANY DISCOMFORT NOTED.
[2018-10-04] MEDS: methylPREDNISolone SS 40 MG/ML VIAL IVP SCH ×3 (04:35→20:49)
[2018-10-04] MEDS: oxyCODONE 5 MG TAB PO PRN ×5 (04:44→23:53)
--- NOTE | 2018-10-04 04:44 | NUR ---
PT AWAKE,C/O PAIN 9/10 ON BILATERAL HANDS CELLULITIS, MEDICATE ORDERED. WILL CONTINUE TO MONITOR.
--- NOTE | 2018-10-04 06:38 | NUR ---
WILL ENDORSED PT IN STABLE CONDITION TO AM NURSE.
--- NOTE | 2018-10-04 07:20 | NUR ---
RECEIVED PT IN STABLE CONDITION FROM IMAGE ARCHIVIST NURSE. PT AWAKE,ALERT AND ORIENTED X4. PT C/O PAIN, WILL ASSESS AND MEDICATED PRN. KEVIN HANDS SWOLLEN WITH CELLULITIS. UPDATED BOARD. IV SITE INTACT, PATENT, SALINE LOCKED. PLAN OF CARE DISCUSSED WITH PT, HE VERBALIZED UNDERSTANDING. SAFETY PRECAUTION IN PLACE, BED ON LOW POSITION. CALL LIGHT AND URINAL PLACED WITHIN EASY REACH. WILL CONTINUE TO MONITOR.
[2018-10-04 07:40] LABS: ALBUMIN 2.9 g/dL (3.4-5.0); CARBON DIOXIDE 28.1 mmol/L (21-32); CREATININE 0.9 mg/dL (0.7-1.3); POTASSIUM 4.1 mmol/L (3.5-5.1); TOTAL BILIRUBIN 0.2 mg/dL (0.0-1.0)
[2018-10-04 07:55] LABS: BASOPHILS % (AUTO) 0.3 % (0.0-2.0); EOSINOPHILS % (AUTO) 0.1 % (0.0-4.0); HEMATOCRIT 40.4 % (36-52); HEMOGLOBIN 13.1 g/dL (12.0-18.0); LYMPHOCYTES # (AUTO) 1.2 K/uL (2.0-11.5); MEAN CORPUSCULAR HEMOGLOBIN 31 pg (27-31); MEAN CORPUSCULAR HGB CONC 33 g/dL (33-37); MEAN CORPUSCULAR VOLUME 94.2 fL (80-94); MONOCYTES # (AUTO) 0.5 K/uL (0.8-1.0); MONOCYTES % (AUTO) 3.6 % (1.7-9.3); NEUTROPHILS # (AUTO) 12.6 K/uL (1.8-7.7); PLATELET COUNT (AUTO) 338 K/uL (140-450); RED BLOOD CELL COUNT(AUTO) 4.29 MIL/uL (4.20-6.10); RED CELL DISTRIBUTION WIDTH 15.2 % (11.6-13.7); WHITE BLOOD COUNT (AUTO) 14.4 K/uL (4.8-10.8)
[2018-10-04 08:00] VITALS: BP 157/90
[2018-10-04 08:44] LABS: NEUTROPHILS % (AUTO) 87.6 % (42.2-75.2)
[2018-10-04 08:45] LABS: LYMPHOCYTES % (AUTO) 8.4 % (20.5-51.1)
[2018-10-04] MEDS: LISINOPRIL 20 MG TAB PO SCH (10:26)
--- NOTE | 2018-10-04 10:28 | NUR ---
ORDERED MEDICATION GIVEN. PATIENT TOLERATED IT WELL. PRN PAIN MEDICATION GIVEN. PATIENT TOLERATED IT. NO COMPLAINTS AT THIS TIME. WILL CONTINUE TO MONITOR PATIENT.
--- NOTE | 2018-10-04 12:54 | NUR ---
PRN PAIN MEDICATION GIVEN FOR BILATERAL HAND CELLULITIS. PATIENT TOLERATED IT. NO COMPLAINTS AT THIS TIME. SAFETY AND ISOLATION PRECAUTIONS IN PLACE, WILL CONTINUE TO MONITOR PATIENT. Addendum: 10/04/18 at 1940 by Dann Toledo RN ORDERED ANTIBIOTICS AND MEDICATION GIVEN. PATIENT TOLERATED IT WELL.
--- NOTE | 2018-10-04 14:59 | NUR ---
PRN PAIN MEDICATION GIVEN FOR BILATERAL HAND CELLULITIS. PATIENT TOLERATED IT. NO COMPLAINTS AT THIS TIME. SAFETY AND ISOLATION PRECAUTIONS IN PLACE, WILL CONTINUE TO MONITOR PATIENT.
[2018-10-04] MEDS ORDERED: CHLORHEXADINE GLUC 2% CLOTH TP SCH (15:00)
[2018-10-04 16:00] VITALS: BP 155/73
--- NOTE | 2018-10-04 19:27 | NUR ---
RECEIVED PT IN STABLE CONDITION FROM AM NURSE. MED SURG PT. AWAKE,ALERT AND ORIENTED X4. WITH NO C/O ANY DISCOMFORT /PAIN AT THIS TIME. KEVIN HANDS STILL SWOLLEN, WITH CELLULITIS. HL ON THE LT FAG#20. CLEAR AND PATENT. BED ON LOW POSITION, IGLES[place] RAILS UP X2 AND CALL LIGHT PLACED WITHIN EASY REACH. ON CONTACT ISOLATION FOR MRSA NARES POSITIVE. PT MADE AWARE ABOUT THE TREATMENT TO BE GIVEN. WILL CONTINUE TO MONITOR.
--- NOTE | 2018-10-04 19:27 | NUR ---
REPORT GIVEN TO INTELLECTUAL PROPERTY LEGAL ASSISTANT EMIGDIO AT BEDSIDE FOR CONTINUITY OF CARE, PATIENT IN STABLE CONDITION. ENDORSED PAIN REASSESSMENT TO INTELLECTUAL PROPERTY LEGAL ASSISTANT NURSE.
[2018-10-04] MEDS ORDERED: NICOTINE TRANSD SYS 14 MG/24 HR PATCH TD SCH (20:00)
--- NOTE | 2018-10-04 20:00 | NUR ---
PT ASKED FOR SOME PUDDING. PROVIDED. TOLERATED WELL.
[2018-10-04] MEDS ORDERED: MUPIROCIN CA NASAL 2% 1GM TUBE NS SCH (21:00)
--- NOTE | 2018-10-04 21:00 | NUR ---
ALL NIGHT MEDS GIVEN SCHEDULED.
--- NOTE | 2018-10-04 22:20 | NUR ---
MADE ROUNDS. SLEEPING. NO S/S OF ANY DISCOMFORT NOTED.
[2018-10-04 23:50] VITALS: BP 155/88
--- NOTE | 2018-10-05 00:01 | NUR ---
PT IN STABLE CONDITION. JUST MEDICATED FOR PAIN FEW MINUTES AGO.
--- NOTE | 2018-10-05 02:00 | NUR ---
MADE ROUNDS. PT IS ASLEEP. NO S/S OF ANY PAIN NOTED.
--- NOTE | 2018-10-05 03:40 | NUR ---
MADE ROUNDS. PT ASLEEP. NO DISCOMFORT NOTED. WILL CONTINUE TO MONITOR.
[2018-10-05] MEDS: HYDROcodone/APAP 5/325 MG 1 TAB TAB PO PRN (04:44)
[2018-10-05] MEDS: methylPREDNISolone SS 40 MG/ML VIAL IVP SCH (05:31)
--- NOTE | 2018-10-05 07:25 | NUR ---
ENDORSED PT IN STABLE CONDITION TO AM NURSE.
--- NOTE | 2018-10-05 07:30 | NUR ---
RECEIVED BEDSIDE REPORT FROM CLOTHING TRADES WORKERS NURSE. PT IS AWAKE AND ALERT, NO S/S OF ANY ACUTE DISTRESS OR SOB NOTED. PT IS ON ROOM AIR. SKIN OVER THE BILATERAL HANDS APPEARS TO BE PEELING CELLULITIC SWELLING IS GOING DOWN. OTHERWISE SKIN IS INTACT. PT IS ON CONTACT ISOLATION FOR MRSA NARES. UNIVERSAL FALL PRECAUTIONS IN PLACE. CALL LIGHT IS WITHIN REACH.
[2018-10-05 07:39] LABS: BASOPHILS % (AUTO) 0.4 % (0.0-2.0); HEMATOCRIT 41.4 % (36-52); HEMOGLOBIN 13.6 g/dL (12.0-18.0); LYMPHOCYTES # (AUTO) 1.5 K/uL (2.0-11.5); LYMPHOCYTES % (AUTO) 12.9 % (20.5-51.1); MEAN CORPUSCULAR HEMOGLOBIN 31 pg (27-31); MEAN CORPUSCULAR HGB CONC 33 g/dL (33-37); MEAN CORPUSCULAR VOLUME 94.7 fL (80-94); MONOCYTES # (AUTO) 0.5 K/uL (0.8-1.0); MONOCYTES % (AUTO) 4.3 % (1.7-9.3); NEUTROPHILS # (AUTO) 9.9 K/uL (1.8-7.7); NEUTROPHILS % (AUTO) 82.4 % (42.2-75.2); PLATELET COUNT (AUTO) 330 K/uL (140-450); RED BLOOD CELL COUNT(AUTO) 4.37 MIL/uL (4.20-6.10); RED CELL DISTRIBUTION WIDTH 15.3 % (11.6-13.7)
[2018-10-05 07:46] LABS: ALBUMIN 3.1 g/dL (3.4-5.0); ANION GAP 12.3 (8-16); POTASSIUM 4.3 mmol/L (3.5-5.1); TOTAL BILIRUBIN 0.2 mg/dL (0.0-1.0)
[2018-10-05 08:00] VITALS: BP 163/85
--- NOTE | 2018-10-05 08:38 | NUR ---
DUE TO CHANGE IN BASSEM SCORE PATIENT HAS BEEN RESCREENED AND CATEGORIZED MODERATE NUTRITION RISK. PATIENT WILL BE SEEN WITHIN 3-5 DAYS FROM ADMISSION. 10/05/18- 10/07/[address]
--- NOTE | 2018-10-05 08:42 | NUR ---
PT'S IV HAS INFILTRATED. WILL ATTEMPT TO INSERT A NEW ONE.
[2018-10-05] MEDS ORDERED: NICOTINE TRANSD SYS 14 MG/24 HR PATCH TD SCH (09:00)
--- NOTE | 2018-10-05 09:20 | NUR ---
SPOKE TO WOUND CARE NURSE YARIEL, SHE RECOMMENDS WIPING PT'S HANDS WITH SKIN PREP TO HELP FORM A PROTECTIVE FILM OVER PT'S SKIN.
[2018-10-05] MEDS: LISINOPRIL 20 MG TAB PO SCH (09:34)
--- NOTE | 2018-10-05 09:40 | NUR ---
AM MEDS ADMINISTERED. PT TOLERATED WELL. APPLIED SKIN PREP ONTO PT'S HANDS PER WOUND CARE NURSE'S RECOMMENDATION.
--- NOTE | 2018-10-05 10:00 | NUR ---
WOUND CARE EVALUATION NOTE: REASON FOR EVALUATION: BILATERAL HANDS CELLULITIS SKIN ASSESSMENT DONE WITH THIS 58 Y/O MALE PT ADMITTED TO [facility] WITH INITIAL DX OF BILATERAL HANDS CELLULITIS. PT IS AWAKE. SKIN IS WARM AND DRY, POOR PERSONAL HYGIENE OBSERVED. BUE /HANDS ERYTHEMA. BLE FEW HAIR GROWTH, NO EDEMA TO BILATERAL LOWER LEGS. PLAN OF CARE DISCUSSED WITH PRIMARY RN AND PT. PT. VERBALIZING UNDERSTANDING INTEGUMENTARY: -XEROSIS TO BLE -BILATERAL DORSAL HANDS, WRISTS FOREARMS RED, SWELLING AND WARM TO TOUCH, DRY SCALY SKIN, NO OPEN ACTIVE WOUNDS RECOMMENDATIONS: -CLEANSE UPPER EXTREMITIES WITH SOAP AND WATER, PAT DRY, APPLY SKIN PREP BID AND OPEN TO AIR DRY - CLEANSE LOWER EXTREMITIES WITH SOAP AND WATER, PAT DRY, APPLY HYDRAGUARD BID OPEN TO AIR DRY -CONTINUE TO FOLLOW RD RECOMMENDATIONS ALL ABOVE RECOMMENDATIONS DISCUSSED WITH PRIMARY RN PLEASE CONTACT WOUND CARE NURSE FOR ANY QUESTION AND CHANGE OF WOUND CONDITION.
--- NOTE | 2018-10-05 10:36 | NUR ---
PT SEEN BY DR VILLANUEVA. DR VILLANUEVA SAYS THE PT WILL BE DISCHARGED TODAY, THUS THERE IS NO NEED TO INSERT A NEW IV.
--- NOTE | 2018-10-05 12:40 | NUR ---
PT HAS DC'D. PT WAS GIVEN DISCHARGE INSTRUCTIONS AND INFORMATION ABOUT COMMUNITY RESOURCES. HE WAS ALSO GIVEN A SMALL SUPPLY OF HYGIENE PRODUCTS. WRIST BANDS WERE REMOVED, IV SITE DC'D. PT LEFT WITH ALL HIS BELONGINGS IN STABLE CONDITION VIA HIS BICYCLE.
[2018-10-05] MEDS ORDERED: HYDRAGUARD CREAM TP SCH (13:00)
--- NOTE | 2018-10-05 14:24 | NUR ---
FOLLOW-UP APPOINTMENT MADE TO SEE PRIMARY DOCTOR BETTY ARIAS [phone] SPOKE WITH ERWIN. APPOINTMENT IS ON OCT 28, 2018 AT 0900 AT [address] [place] [address]. CALLED PATIENT AND LEFT A MESSAGE @ [phone].
== END 2018-10-05 12:40 | disposition home or self-care (01) | DRG 385 ==
LOC: MED 09:05 → MTU 13:24
PROVIDERS: ADMIT Internal Medicine Pulmonary Disease; ATTEND Internal Medicine Pulmonary Disease
DX: L30.9 Dermatitis, unspecified (principal); Z59.0 Homelessness; Z91.040 Latex allergy status
CPT/HCPCS: 36415; 73130; 80048; 80053; 83605; 85025; 85651; 86140; 87040; 87081; 96374; 99285; J0690; J0696; J2270; J2920; J7060; Q0092

== ENCOUNTER 2019-09-07 22:01 | Emergency (ER) | payer OTHER ==
[~2019-09-07] VITALS: Ht 188 cm; Wt 81.6 kg
[2019-09-07 23:05] VITALS: BP 130/82
[2019-09-08] MEDS ORDERED: GABAPENTIN 300 MG CAP PO ONE (01:00)
[2019-09-08] MEDS ORDERED: HYDROcodone/APAP 5/325 MG 1 TAB TAB PO ONE (01:00)
[2019-09-08] MEDS ORDERED: CYCLOBENZAPRINE 10 MG TAB PO ONE (01:00)
[2019-09-08] MEDS ORDERED: GABAPENTIN 100 MG CAP ONE (01:13)
[2019-09-08 02:26] VITALS: BP 148/84
== END 2019-09-08 02:26 | disposition home or self-care (01) ==
LOC: MED 22:01
DX: M54.5 Low back pain (principal); M54.30 Sciatica, unspecified side; R03.0 Elevated blood-pressure reading, without diagnosis of hypertension
CPT/HCPCS: 81002; 99284

== ENCOUNTER 2019-10-28 16:09 | Emergency (ER) | payer OTHER ==
[~2019-10-28] VITALS: Ht 188 cm; Wt 83.9 kg
[2019-10-28 16:14] VITALS: BP 165/76
--- NOTE | 2019-10-28 16:20 | NUR ---
PT C/O LT FOOT PAIN WITH PLANTAR WART X 5 MONTHS. DENIES COVID-19 RELATED SX. AAOX4 WITH EVEN AND STEADY GAIT; HR EVEN AND REGULAR; PT DENIES ANY FEVER, CP, SOB, OR COUGH AT THIS TIME; PATIENT STATES PAIN OF 6/10 AT THIS TIME; VSS; PATIENT POSITIONED FOR COMFORT; HOB ELEVATED; BEDRAILS UP X1; BED DOWN. ER MD MADE AWARE OF PT STATUS.
[2019-10-28] MEDS ORDERED: BACITRACIN OINT 500 UNITS/GM PKT TP ONE (16:41)
[2019-10-28 16:52] VITALS: BP 145/68
--- NOTE | 2019-10-28 16:52 | NUR ---
Patient discharged with v/s stable. Written and verbal after care instructions given and explained. Patient alert, oriented and verbalized understanding of instructions. Ambulatory with steady gait. All questions addressed prior to discharge. ID band removed. Patient advised to follow up with PMD. Rx of Salicylic Acid and Keflex given. Patient educated on indication of medication including possible reaction and side effects. Opportunity to ask questions provided and answered.
== END 2019-10-28 16:52 | disposition home or self-care (01) ==
LOC: MED 16:09
DX: L84 Corns and callosities (principal); S61.212D Laceration without foreign body of right middle finger without damage to nail, subsequent encounter; X58.XXXD Exposure to other specified factors, subsequent encounter
CPT/HCPCS: 99283

== ENCOUNTER 2019-12-06 08:06 | Emergency (ER) | payer OTHER ==
[~2019-12-06] VITALS: Ht 188 cm; Wt 79.4 kg
[2019-12-06 08:09] VITALS: BP 157/81
[2019-12-06] MEDS ORDERED: NACL 0.9% 500 ML IV SCH (08:17)
[2019-12-06] MEDS ORDERED: VANCOMYCIN 1,000 MG in DEXTROSE 5% 250 ML IV ONE (08:20)
[2019-12-06] MEDS ORDERED: KETOROLAC 30 MG/ML VIAL IVP ONE (08:20)
[2019-12-06] MEDS ORDERED: ALBUTEROL SULFATE/IPRATROPIU 3 ML SOL IH ONE (08:20)
[2019-12-06] MEDS ORDERED: VANCOMYCIN 1,000 MG VIAL ONE (08:29)
[2019-12-06 08:35] LABS: BASOPHILS # (AUTO) 0.1 K/uL (0.00-0.22); EOSINOPHILS # (AUTO) 0.5 K/uL (0-0.4); EOSINOPHILS % (AUTO) 4.2 % (0.0-4.0); LYMPHOCYTES # (AUTO) 1.7 K/uL (2.0-11.5); LYMPHOCYTES % (AUTO) 14.7 % (20.5-51.1); MEAN CORPUSCULAR HEMOGLOBIN 32 pg (27-31); MEAN CORPUSCULAR HGB CONC 33 g/dL (33-37); MEAN CORPUSCULAR VOLUME 97.3 fL (80-94); MONOCYTES # (AUTO) 0.8 K/uL (0.8-1.0); MONOCYTES % (AUTO) 7.1 % (1.7-9.3); NEUTROPHILS # (AUTO) 8.5 K/uL (1.8-7.7); PLATELET COUNT (AUTO) 341 K/uL (140-450); RED BLOOD CELL COUNT(AUTO) 4.01 MIL/uL (4.20-6.10); RED CELL DISTRIBUTION WIDTH 14.6 % (11.6-13.7); WHITE BLOOD COUNT (AUTO) 11.6 K/uL (4.8-10.8)
[2019-12-06 09:04] LABS: ALBUMIN 3.3 g/dL (3.4-5.0); ANION GAP 16.4 (8-16); CARBON DIOXIDE 24.2 mmol/L (21-32); CREATININE 1.4 mg/dL (0.6-1.3); POTASSIUM 3.6 mmol/L (3.5-5.1); TOTAL BILIRUBIN 0.3 mg/dL (0.0-1.0)
== END 2019-12-06 11:10 | disposition home or self-care (01) ==
LOC: MED 08:06
DX: L02.31 Cutaneous abscess of buttock (principal); K64.9 Unspecified hemorrhoids; N28.9 Disorder of kidney and ureter, unspecified; R03.0 Elevated blood-pressure reading, without diagnosis of hypertension; F17.200 Nicotine dependence, unspecified, uncomplicated; Z71.6 Tobacco abuse counseling
CPT/HCPCS: 36415; 71045; 80053; 83605; 85025; 87040; 93005; 94640; 94760; 96365; 96375; 99285; J1885; J3370; J7030; Q0092

== ENCOUNTER 2020-09-24 21:03 | Emergency (ER) | payer OTHER, SELFPAY ==
[~2020-09-24] VITALS: Ht 188 cm; Wt 74.8 kg
[~2020-09-24 21:03] MED LIST changes: +ACET-1182 PO; +ALBU0.0912 INH; +DIPH25SG5 PO; +HYD1C TP; +NICO-532 TD; -SULF-59 PO
[2020-09-24 21:15] VITALS: BP 140/82
--- NOTE | 2020-09-24 21:17 | NUR ---
TO LOBBY A/W BED AMBULATORY
--- NOTE | 2020-09-24 22:06 | NUR ---
PT AMBULATED TO BED 6
--- NOTE | 2020-09-24 22:10 | NUR ---
PT. IS A 60 Y/O MALE THAT CAME INTO ED WITH C/O OF SKIN PROBLEMS. PT. STATES THAT HIS SKIN FEELS "ITCHY, AND I FEEL LIKE IT TINGLY." PT. ALSO STATES "I DON'T KNOW THAT I PEED WHEN I DID IT ALREADY." PT. RATES PAIN AT 0/10 AT THIS TIME, ONLY STATES SKIN FEELS ITCHY. PT. ALSO STAETS THAT HE HAS DIARRHEA. DENIES N/V; SKIN IS PINK/WARM/DRY; AAOX4 WITH EVEN AND STEADY GAIT; HR EVEN AND REGULAR; PT DENIES ANY FEVER, CP, SOB, OR COUGH AT THIS TIME;VSS; PATIENT LAYING IN SUPINE POSITION COMFORTABLY; HOB ELEVATED; BEDRAILS UP X1; BED DOWN. ER MD MADE AWARE OF PT STATUS.
--- NOTE | 2020-09-24 22:30 | NUR ---
Dr. Roche examining patient.
[2020-09-24] MEDS ORDERED: methylPREDNISolone SS 125 MG/2 ML VIAL IM ONE (22:45)
--- NOTE | 2020-09-24 23:12 | NUR ---
PT. IS SEEN IN PORTER POSITION RESTING WITH EYES CLOSED, VOICES NO COMPLAINTS.
[2020-09-24] MEDS ORDERED: PRED20TA5 PO (23:41)
[2020-09-24] MEDS ORDERED: PERM60CR TP (23:41)
[2020-09-24] MEDS ORDERED: BENC TP (23:41)
[2020-09-24 23:52] VITALS: BP 140/82
--- NOTE | 2020-09-24 23:52 | NUR ---
Patient discharged with v/s stable. Written and verbal after care instructions given and explained. Patient alert, oriented and verbalized understanding of instructions. Ambulatory with steady gait. All questions addressed prior to discharge. Patient advised to follow up with PMD. Rx of BENADRYL ITCH STOPPING CREAM, ELIMITE, AND DELTASONE given. Patient educated on indication of medication including possible reaction and side effects. Opportunity to ask questions provided and answered.
== END 2020-09-24 23:52 | disposition home or self-care (01) ==
LOC: MED 21:03
DX: R21 Rash and other nonspecific skin eruption (principal); J45.909 Unspecified asthma, uncomplicated; I10 Essential (primary) hypertension; Z86.73 Personal history of transient ischemic attack (TIA), and cerebral infarction without residual deficits; Z79.899 Other long term (current) drug therapy
CPT/HCPCS: 96372; 99283; J2930

== ENCOUNTER 2020-11-03 10:37 | Observation (INO) | payer OTHER, SELFPAY ==
[~2020-11-03] VITALS: Ht 188 cm; Wt 71.7 kg
[2020-11-03 10:37] VITALS: BP 138/90
[~2020-11-03 10:37] MED LIST changes: +BENC TP; +PERM60CR TP; +PRED20TA5 PO
--- NOTE | 2020-11-03 10:54 | NUR ---
PT MOVED TO BED 12 BY EMS.
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
[2020-11-03 11:50] LABS: BASOPHILS # (AUTO) 0.1 K/uL (0.00-0.22); BASOPHILS % (AUTO) 1.2 % (0.0-2.0); EOSINOPHILS # (AUTO) 0.3 K/uL (0-0.4); EOSINOPHILS % (AUTO) 4.6 % (0.0-4.0); HEMATOCRIT 37.4 % (36-52); HEMOGLOBIN 12.3 g/dL (12.0-18.0); LYMPHOCYTES % (AUTO) 28.6 % (20.5-51.1); MEAN CORPUSCULAR HEMOGLOBIN 34 pg (27-31); MEAN CORPUSCULAR HGB CONC 33 g/dL (33-37); MEAN CORPUSCULAR VOLUME 101.6 fL (80-94); MONOCYTES # (AUTO) 0.6 K/uL (0.8-1.0); MONOCYTES % (AUTO) 8.7 % (1.7-9.3); NEUTROPHILS % (AUTO) 56.9 % (42.2-75.2); PLATELET COUNT (AUTO) 220 K/uL (140-450); RED BLOOD CELL COUNT(AUTO) 3.68 MIL/uL (4.20-6.10); RED CELL DISTRIBUTION WIDTH 15.5 % (11.6-13.7)
--- NOTE | 2020-11-03 11:56 | NUR ---
RICARDO SWAB SENT TO LAB
[2020-11-03 12:04] LABS: ALBUMIN 3.7 g/dL (3.4-5.0); ANION GAP 14.6 (8-16); CREATININE 1.3 mg/dL (0.6-1.3); POTASSIUM 3.6 mmol/L (3.5-5.1); TOTAL BILIRUBIN 0.7 mg/dL (0.0-1.0)
[2020-11-03] MEDS ORDERED: ACETAMINOPHEN 325 MG TAB PO PRN (13:45)
[2020-11-03] MEDS ORDERED: HYDROcodone/APAP 5/325 MG 1 TAB TAB PO PRN (13:45)
[2020-11-03] MEDS ORDERED: MORPHINE SULFATE 2 MG/ML SYR IVP PRN (13:45)
[2020-11-03] MEDS ORDERED: ONDANSETRON 4 MG/2 ML VIAL IVP PRN (13:45)
--- NOTE | 2020-11-03 14:45 | NUR ---
Patient will be admitted to care of Dr Nugent. Admited to Tele. Will go to room 126B. Belongings list completed. Report to Jaleel ZARAGOZA.
[2020-11-03 15:16] LABS: CREATINE KINASE MB 4.2 ng/mL (0-3.6)
[2020-11-03 15:55] VITALS: BP 144/88
--- NOTE | 2020-11-03 15:55 | NUR ---
PT ARRIVED ON GURNEY FROM ED IN STABLE CONDITION. PT ABLE TO AMBULATE TO BED. PT HAS A RIGHT AC 20 GAUGE ON SALINE LOCK, WITH NO FLUIDS ORDER. IV IS PATENT AND INTACT. PT IS ALERT AND ORIENTED X4, PT IS SR ON TELE MONITOR. PT DECLINES N/V. PT SKIN IS INTACT BUT HANDS ARE EXTREMELY SCALEY AND DRY. STATES THAT HE WEARS GLOVES ALL THE TIME AND EMS MADE HIM TAKE THEM OFF AND THEN HIS HANDS TURNED LIKE THAT. PT EKG SHOWED SR, CXR WAS NEGATIVE, TROPONIN WAS NEGATIVE. EDUCATION PROVIDED SENIOR BOILER OPERATOR LIGHT, PT PROVIDED WITH ROOM PHONE. ALL SAFETY MEASURES IN PLACE, CALL LIGHT WITHIN REACH. WILL CONTINUE TO MONITOR.
--- NOTE | 2020-11-03 16:59 | NUR ---
PRN PAIN MEDICATION ADMINISTERED PER MD ORDER. PT RATED PAIN OF 8/10, ALL SAFETY MEASURES IN PLACE. WILL CONTINUE TO MONITOR.
--- NOTE | 2020-11-03 17:24 | NUR ---
PT REPORTS SEVERE PAIN STILL, WILL OBTAIN ORDER FROM ED
[2020-11-03] MEDS ORDERED: NITROGLYCERIN 0.4 MG TAB SL PRN (17:35)
--- NOTE | 2020-11-03 17:38 | NUR ---
PT REPORTS PAIN BETTER AFTER GETTING JUICE AND MILK.
[2020-11-03 17:51] VITALS: BP 144/88
--- NOTE | 2020-11-03 18:58 | NUR ---
SECOND TRAY ORDERED FOR PT PER REQUEST. PT IS STABLE WITH NO ACUTE S/S OF DISTRESS.
--- NOTE | 2020-11-03 19:10 | NUR ---
PT HAS BEEN ENDORSED TO TRANSPORT MANAGER NURSE IN STABLE CONDITION, POC DISCUSSED
--- NOTE | 2020-11-03 19:15 | NUR ---
RECIEVED BEDSIDE ENDORSEMENT FROM DAY SHIFT RN, PT LYING IN BED RESTING, A&OX4, ABLE TO MAKE NEEDS KNOWN AND FOLLOWS SIMPLE COMMANDS, AFEBRILE, SR ON MONITOR, ON ROOM AIR, VSS, ABD SOFT AND NON TENDER TO TOUCH, SKIN WARM DRY AND INTACT/DRY SKIN ON HANDS, RAC 20 G PIV SALINE LOCKED PATENT AND FLUSHED, PT ABLE TO AMBULATE AND USE BEDSIDE URINAL, PT SHOWING NO SIGNS OF ACUTE DISTRESS, SAFETY MEASURES IN PLACE, WILL CONTINUE WITH CURRENT POC
[2020-11-03 20:00] VITALS: BP 152/93
[2020-11-04] VITALS: BP 138/72
--- NOTE | 2020-11-04 00:10 | NUR ---
PT APPEARS TO BE ASLEEP AND SHOWING NO SIGNS OF ACUTE DISTRESS
--- NOTE | 2020-11-04 02:39 | NUR ---
PT APPEARS TO BE ASLEEP AND SHOWING NO SIGNS OF AUTE DISTRESS
[2020-11-04 04:00] VITALS: BP 166/76
--- NOTE | 2020-11-04 05:17 | NUR ---
PT APPEARS TO BE RESTING WATCHING TV AND SHOWING NO SIGNS OF ACUTE DISTRESS
[2020-11-04 06:12] LABS: BASOPHILS # (AUTO) 0.1 K/uL (0.00-0.22); BASOPHILS % (AUTO) 0.8 % (0.0-2.0); EOSINOPHILS # (AUTO) 0.4 K/uL (0-0.4); EOSINOPHILS % (AUTO) 4.6 % (0.0-4.0); HEMATOCRIT 35.9 % (36-52); HEMOGLOBIN 12.1 g/dL (12.0-18.0); LYMPHOCYTES # (AUTO) 1.7 K/uL (2.0-11.5); LYMPHOCYTES % (AUTO) 22.9 % (20.5-51.1); MEAN CORPUSCULAR HEMOGLOBIN 34 pg (27-31); MEAN CORPUSCULAR HGB CONC 34 g/dL (33-37); MEAN CORPUSCULAR VOLUME 101.6 fL (80-94); MONOCYTES # (AUTO) 0.8 K/uL (0.8-1.0); MONOCYTES % (AUTO) 10.3 % (1.7-9.3); NEUTROPHILS # (AUTO) 4.7 K/uL (1.8-7.7); NEUTROPHILS % (AUTO) 61.4 % (42.2-75.2); PLATELET COUNT (AUTO) 192 K/uL (140-450); RED BLOOD CELL COUNT(AUTO) 3.54 MIL/uL (4.20-6.10); RED CELL DISTRIBUTION WIDTH 15.6 % (11.6-13.7); WHITE BLOOD COUNT (AUTO) 7.6 K/uL (4.8-10.8)
--- NOTE | 2020-11-04 07:28 | NUR ---
ENDORSED TO DAY SHIFT RN FOR CONTINUITY OF CARE
--- NOTE | 2020-11-04 07:30 | NUR ---
RECEIVED REPORT FROM NIGHT NURSE. IN BED WITH HOB ELEVATED, AOX4, NO SOB ON ROOM AIR, NO C/O PAIN. PT AMBULATORY AND CONTINENT. NO IV ACCESS, PT REFUSING PER ENDORSEMENT. SKIN INTACT. SAFETY MEASURES IN PLACE, CALL LIGHT WITHIN REACH. WILL CONTINUE TO MONITOR.
[2020-11-04 07:31] LABS: ANION GAP 11.4 (8-16); CARBON DIOXIDE 27.6 mmol/L (21-32); CREATININE 1.1 mg/dL (0.6-1.3)
[2020-11-04 07:37] LABS: ALBUMIN 3.2 g/dL (3.4-5.0); TOTAL BILIRUBIN 0.5 mg/dL (0.0-1.0)
--- NOTE | 2020-11-04 07:45 | NUR ---
PATIENT HAS BEEN SCREENED AND CATEGORIZED LOW NUTRITION RISK. PATIENT WILL BE SEEN WITHIN 7 DAYS OF ADMISSION. 11/10/[address] Addendum: 11/04/20 at [address] UPDATED: PATIENT HAS BEEN SCREENED AND CATEGORIZED MODERATE NUTRITION RISK. PATIENT WILL BE SEEN WITHIN 3-5 DAYS OF ADMISSION. 11/06/2020-11/08/[address]
[2020-11-04 08:00] VITALS: BP 150/85
--- NOTE | 2020-11-04 08:40 | NUR ---
DUE MEDS GIVEN TOLERATED WELL
[2020-11-04] MEDS ORDERED: IBUP-1842 PO (08:59)
[2020-11-04] MEDS ORDERED: ASPIRIN 81 MG TAB.CHEW PO SCH (09:00)
[2020-11-04] MEDS ORDERED: ENOXAPARIN 40 MG/0.4 ML SYR SUBQ SCH (09:00)
--- NOTE | 2020-11-04 10:00 | NUR ---
SEEN BY DR MOREL, GAVE DISCHARGE ORDER
--- NOTE | 2020-11-04 11:30 | NUR ---
DISCHARGE INSTRUCTIONS GIVEN. PT REQUESTING TO STAY UNTIL AFTER LUNCH
[2020-11-04 12:00] VITALS: BP 154/77
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
== END 2020-11-04 13:10 | disposition home or self-care (01) ==
LOC: MED 10:37 → MTU 13:48
PROVIDERS: ADMIT Internal Medicine; ATTEND Internal Medicine
DX: R07.89 Other chest pain (principal); Z20.822 Contact with and (suspected) exposure to COVID-19; J44.9 Chronic obstructive pulmonary disease, unspecified; F10.10 Alcohol abuse, uncomplicated; F17.200 Nicotine dependence, unspecified, uncomplicated; Z79.899 Other long term (current) drug therapy
CPT/HCPCS: 36415; 71045; 80053; 82550; 82553; 83880; 84484; 85025; 87081; 87426; 93005; 96372; 96374; 99285; G0378; J1650; J2270

== ENCOUNTER 2021-01-07 12:38 | Emergency (ER) | payer OTHER, SELFPAY ==
[~2021-01-07] VITALS: Ht 188 cm; Wt 74.8 kg
[~2021-01-07 12:38] MED LIST changes: -ACET-1182 PO; -ALBU0.0912 INH; -BENC TP; -DIPH25SG5 PO; -HYD1C TP; +IBUP-1842 PO; -NICO-532 TD; -PERM60CR TP; -PRED20TA5 PO
[2021-01-07 12:49] VITALS: BP 177/99
--- NOTE | 2021-01-07 12:55 | NUR ---
PT TO WAIT IN LOBBY
--- NOTE | 2021-01-07 13:22 | NUR ---
DR PAYAN EVALUATING PT AT THIS TIME
[2021-01-07] MEDS ORDERED: KETOROLAC 30 MG/ML VIAL IM ONE (13:25)
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
--- NOTE | 2021-01-07 13:47 | NUR ---
PT TAKEN TO XRAY VIA W/C
[2021-01-07] MEDS ORDERED: NAPR-54 PO (14:48)
[2021-01-07 14:57] VITALS: BP 177/99
== END 2021-01-07 14:57 | disposition home or self-care (01) ==
LOC: MED 12:38
DX: S00.83XA Contusion of other part of head, initial encounter (principal); V18.2XXA Unspecified pedal cyclist injured in noncollision transport accident in nontraffic accident, initial encounter; Y93.89 Activity, other specified; Y92.89 Other specified places as the place of occurrence of the external cause; Y99.8 Other external cause status
CPT/HCPCS: 70450; 71045; 96372; 99284; J1885

== ENCOUNTER 2021-02-27 12:41 | Emergency (ER) | payer OTHER ==
[~2021-02-27] VITALS: Ht 188 cm; Wt 74.8 kg
[~2021-02-27 12:41] MED LIST changes: +NAPR-54 PO
--- NOTE | 2021-02-27 12:50 | NUR ---
PT AMBULATED TO BED
[2021-02-27 12:55] VITALS: BP 181/101
--- NOTE | 2021-02-27 13:00 | NUR ---
61 Y/O MALE C/O NECK AND BACK PAIN X 1 MONTH. DENIES TRAUMA OR RECENT INJURY. PT STATES 12/24 PAIN. MEDHX: DENIES NKA
--- NOTE | 2021-02-27 13:11 | NUR ---
DR DANIELS AT BEDSIDE EXAMINING PT
[2021-02-27] MEDS ORDERED: HYDROcodone/APAP 5/325 MG 1 TAB TAB PO ONE (13:35)
[2021-02-27] MEDS ORDERED: KETOROLAC 60 MG/2 ML VIAL IM ONE (13:35)
[2021-02-27] MEDS ORDERED: predniSONE 20 MG TAB PO ONE (13:35)
--- NOTE | 2021-02-27 13:51 | NUR ---
LAB AT BEDSIDE
[2021-02-27 13:54] LABS: BASOPHILS # (AUTO) 0.1 K/uL (0.00-0.22); EOSINOPHILS # (AUTO) 0.2 K/uL (0-0.4); EOSINOPHILS % (AUTO) 3.3 % (0.0-4.0); HEMOGLOBIN 12.9 g/dL (12.0-18.0); LYMPHOCYTES # (AUTO) 1.2 K/uL (2.0-11.5); MEAN CORPUSCULAR HEMOGLOBIN 33 pg (27-31); MEAN CORPUSCULAR HGB CONC 34 g/dL (33-37); MEAN CORPUSCULAR VOLUME 98.1 fL (80-94); MONOCYTES # (AUTO) 0.6 K/uL (0.8-1.0); MONOCYTES % (AUTO) 12.2 % (1.7-9.3); NEUTROPHILS # (AUTO) 3.2 K/uL (1.8-7.7); NEUTROPHILS % (AUTO) 60.5 % (42.2-75.2); PLATELET COUNT (AUTO) 245 K/uL (140-450); RED BLOOD CELL COUNT(AUTO) 3.87 MIL/uL (4.20-6.10); RED CELL DISTRIBUTION WIDTH 14.4 % (11.6-13.7); WHITE BLOOD COUNT (AUTO) 5.3 K/uL (4.8-10.8)
--- NOTE | 2021-02-27 13:58 | NUR ---
PT STATES HE IS UNABLE TO PROVIDE URINE AT THIS TIME. WATER PROVIDED.
[2021-02-27 14:28] LABS: ALBUMIN 3.4 g/dL (3.4-5.0); ANION GAP 12.1 (8-16); CARBON DIOXIDE 26.3 mmol/L (21-32); CREATININE 1.2 mg/dL (0.6-1.3); POTASSIUM 4.4 mmol/L (3.5-5.1); TOTAL BILIRUBIN 0.3 mg/dL (0.0-1.0)
--- NOTE | 2021-02-27 14:37 | NUR ---
Patient appears to be resting in bed. Vital Signs within normal limits. Respirations even and unlabored.
[2021-02-27 14:43] LABS: APPEARANCE,URINE CLEAR (CLEAR); BILIRUBIN,URINE NEGATIVE (NEGATIVE); BLOOD, URINE NEGATIVE (NEGATIVE); LEUKOCYTE ESTERASE ,URINE NEGATIVE (NEGATIVE); NITRITE, URINE NEGATIVE (NEGATIVE); UGLUCOSE TRACE (NEGATIVE)
[2021-02-27 14:51] LABS: COLOR,URINE AMBER (YELLOW)
[2021-02-27] MEDS ORDERED: IBUP-2230 PO (15:10)
[2021-02-27] MEDS ORDERED: VIB100 PO (15:11)
[2021-02-27 15:16] VITALS: BP 166/109
--- NOTE | 2021-02-27 15:16 | NUR ---
Patient discharged with v/s stable. Written and verbal after care instructions given and explained. Patient alert, oriented and verbalized understanding of instructions. Ambulatory with steady gait. All questions addressed prior to discharge. ID band removed. Patient advised to follow up with PMD. Rx of IBUPROFEN AND DOXYCYCLINE HYCLATE given. Patient educated on indication of medication including possible reaction and side effects. Opportunity to ask questions provided and answered.
== END 2021-02-27 15:16 | disposition home or self-care (01) ==
LOC: MED 12:41
DX: M54.9 Dorsalgia, unspecified (principal); M06.9 Rheumatoid arthritis, unspecified; J45.909 Unspecified asthma, uncomplicated; Z86.73 Personal history of transient ischemic attack (TIA), and cerebral infarction without residual deficits; I10 Essential (primary) hypertension; F12.10 Cannabis abuse, uncomplicated; F15.10 Other stimulant abuse, uncomplicated; F17.210 Nicotine dependence, cigarettes, uncomplicated
CPT/HCPCS: 36415; 80053; 81003; 85025; 96372; 99283; J1885; J7512

== ENCOUNTER 2021-04-24 11:03 | Emergency (ER) | payer OTHER ==
[~2021-04-24] VITALS: Ht 188 cm; Wt 72.6 kg
[~2021-04-24 11:03] MED LIST changes: +IBUP-2230 PO; +VIB100 PO
[2021-04-24 11:14] VITALS: BP 147/100
[2021-04-24] MEDS ORDERED: AMOXIL/CLAVULANATE 875/125 MG 1 TAB PO ONE (12:00)
[2021-04-24] MEDS ORDERED: IBUPROFEN 600 MG TAB PO ONE (12:00)
[2021-04-24] MEDS ORDERED: IBUP-2213 PO (12:04)
[2021-04-24] MEDS ORDERED: AMOX-1000 PO (12:04)
--- NOTE | 2021-04-24 12:40 | NUR ---
Patient discharged with v/s stable. Written and verbal after care instructions given and explained. Patient alert, oriented and verbalized understanding of instructions. Ambulatory with steady gait. All questions addressed prior to discharge. ID band removed. Patient advised to follow up with PMD. Rx of AUGMENTIN, IBU given. Patient educated on indication of medication including possible reaction and side effects. Opportunity to ask questions provided and answered.
[2021-04-24 12:42] VITALS: BP 132/65
[2021-04-24] MEDS ORDERED: POLYETHYLENE GLYCOL 17 GM/PKT ONE (18:17)
[2021-04-24] MEDS ORDERED: SENNA 8.6 MG TAB ONE (18:17)
[2021-04-24] MEDS ORDERED: LACTULOSE 20 GM/30 ML UDC ONE (18:17)
== END 2021-04-24 12:40 | disposition home or self-care (01) ==
LOC: MED 11:03
DX: H66.92 Otitis media, unspecified, left ear (principal); J45.909 Unspecified asthma, uncomplicated; I10 Essential (primary) hypertension; Z86.73 Personal history of transient ischemic attack (TIA), and cerebral infarction without residual deficits; Z79.899 Other long term (current) drug therapy
CPT/HCPCS: 99283

== ENCOUNTER 2021-08-29 09:52 | Emergency (ER) | payer OTHER ==
[~2021-08-29] VITALS: Ht 188 cm; Wt 73.5 kg
[~2021-08-29 09:52] MED LIST changes: +AMOX-1000 PO; +IBUP-2213 PO
[2021-08-29 10:00] VITALS: BP 129/77
--- NOTE | 2021-08-29 10:10 | NUR ---
PT AMB TO ER BED 2
[2021-08-29] MEDS ORDERED: cephALEXin 500 MG CAP PO ONE (10:40)
[2021-08-29] MEDS ORDERED: predniSONE 20 MG TAB PO ONE (10:40)
[2021-08-29] MEDS ORDERED: CEPH500C16 PO (10:52)
[2021-08-29] MEDS ORDERED: MUPI2CRE22 TP (10:52)
[2021-08-29] MEDS ORDERED: LIDO170S TP (10:52)
[2021-08-29] MEDS ORDERED: PRED20TA5 PO (10:52)
[2021-08-29] MEDS ORDERED: BACITRACIN OINT 500 UNITS/GM PKT TP ONE (10:55)
[2021-08-29 11:35] VITALS: BP 122/75
--- NOTE | 2021-08-29 11:35 | NUR ---
Patient discharged with v/s stable. Written and verbal after care instructions given and explained. Patient alert, oriented and verbalized understanding of instructions. Ambulatory with steady gait. All questions addressed prior to discharge. ID band removed. Patient advised to follow up with PMD. Rx of KEFLEX,MUPIROCIN,DELTASONE given. Patient educated on indication of medication including possible reaction and side effects. Opportunity to ask questions provided and answered.
== END 2021-08-29 11:35 | disposition home or self-care (01) ==
LOC: MED 09:52
DX: L55.0 Sunburn of first degree (principal); L20.9 Atopic dermatitis, unspecified; A46 Erysipelas; J45.909 Unspecified asthma, uncomplicated; I10 Essential (primary) hypertension; Z86.73 Personal history of transient ischemic attack (TIA), and cerebral infarction without residual deficits; Z79.899 Other long term (current) drug therapy; Z79.2 Long term (current) use of antibiotics; Z79.1 Long term (current) use of non-steroidal anti-inflammatories (NSAID)
CPT/HCPCS: 16000; 99283; J7512

== ENCOUNTER 2021-11-09 09:42 | Emergency (ER) | payer OTHER ==
[~2021-11-09] VITALS: Ht 188 cm; Wt 72.1 kg
[~2021-11-09 09:42] MED LIST changes: +CEPH500C16 PO; +LIDO170S TP; +MUPI2CRE22 TP; +PRED20TA5 PO
[2021-11-09 09:44] VITALS: BP 107/75
--- NOTE | 2021-11-09 09:48 | NUR ---
Pt ambulated to bed 03.
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
[2021-11-09] MEDS ORDERED: KETOROLAC 60 MG/2 ML VIAL IM ONE (10:05)
--- NOTE | 2021-11-09 10:05 | NUR ---
Dr Almazan at bedside for evaluation
--- NOTE | 2021-11-09 10:15 | NUR ---
Pt reported thoughts of harming self. States " I just want to drop ". Pt also reports he drank a bottle of Vodka today. States he has had these thoughts for years altough denies any or previous attempts. Dr Almazan made aware, no orders given at this time, states he does not want to do telepysch.
--- NOTE | 2021-11-09 10:15 | NUR ---
xray at bedside
[2021-11-09] MEDS ORDERED: IBUP-2213 PO (11:39)
[2021-11-09 12:15] VITALS: BP 134/86
--- NOTE | 2021-11-09 12:15 | NUR ---
Patient discharged with v/s stable. Written and verbal after care instructions about hip pain given and explained. Patient alert, oriented and verbalized understanding of instructions. Ambulatory with steady gait. All questions addressed prior to discharge. ID band removed. Patient advised to follow up with PMD. Rx of Ibuprofen given. Patient educated on indication of medication including possible reaction and side effects. Opportunity to ask questions provided and answered.
== END 2021-11-09 12:15 | disposition home or self-care (01) ==
LOC: MED 09:42
DX: S70.01XA Contusion of right hip, initial encounter (principal); J45.909 Unspecified asthma, uncomplicated; I10 Essential (primary) hypertension; F17.200 Nicotine dependence, unspecified, uncomplicated; Z86.73 Personal history of transient ischemic attack (TIA), and cerebral infarction without residual deficits; Z79.899 Other long term (current) drug therapy; W22.09XA Striking against other stationary object, initial encounter; Y93.89 Activity, other specified; Y92.89 Other specified places as the place of occurrence of the external cause; Y99.8 Other external cause status
CPT/HCPCS: 73502; 96372; 99283; J1885

== ENCOUNTER 2021-11-28 09:51 | Emergency (ER) | payer OTHER ==
[~2021-11-28] VITALS: Ht 188 cm; Wt 72.6 kg
[2021-11-28 10:02] VITALS: BP 149/91
--- NOTE | 2021-11-28 10:02 | NUR ---
AMBULATED TO BED 7
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
--- NOTE | 2021-11-28 10:57 | NUR ---
DR. DANIELS EVALUATING PATIENT BEDSIDE
[2021-11-28] MEDS ORDERED: CEPH-588 PO (11:10)
[2021-11-28] MEDS ORDERED: BACI-352 TP (11:10)
[2021-11-28] MEDS ORDERED: SULOS OP (11:10)
[2021-11-28 11:25] VITALS: BP 149/91
--- NOTE | 2021-11-28 11:27 | NUR ---
Patient discharged with v/s stable. Written and verbal after care instructions given and explained. Patient alert, oriented and verbalized understanding of instructions. Ambulatory with steady gait. All questions addressed prior to discharge. ID band removed. Patient advised to follow up with PMD. Rx of SULFACETAMIDE, NEOSPORIN, KEFLEX given. Patient educated on indication of medication including possible reaction and side effects. Opportunity to ask questions provided and answered.
== END 2021-11-28 10:02 | disposition home or self-care (01) ==
LOC: MED 09:51
DX: H10.9 Unspecified conjunctivitis (principal); L03.119 Cellulitis of unspecified part of limb; R19.7 Diarrhea, unspecified; J45.909 Unspecified asthma, uncomplicated; I10 Essential (primary) hypertension; F17.210 Nicotine dependence, cigarettes, uncomplicated; F12.90 Cannabis use, unspecified, uncomplicated; F15.90 Other stimulant use, unspecified, uncomplicated; Z71.6 Tobacco abuse counseling; Z86.73 Personal history of transient ischemic attack (TIA), and cerebral infarction without residual deficits; Z79.899 Other long term (current) drug therapy
CPT/HCPCS: 99283

== ENCOUNTER 2021-12-20 21:48 | Emergency (ER) | payer OTHER ==
[~2021-12-20] VITALS: Ht 188 cm; Wt 81.6 kg
[~2021-12-20 21:48] MED LIST changes: +BACI-352 TP; +CEPH-588 PO; +SULOS OP
[2021-12-20 21:55] VITALS: BP 115/82
--- NOTE | 2021-12-20 21:55 | NUR ---
KEELEY FROM STREETS TAKEN TO BED #6
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
--- NOTE | 2021-12-20 22:13 | NUR ---
Dr. More examining patient.
--- NOTE | 2021-12-20 23:48 | NUR ---
PT RETURN FROM CT
--- NOTE | 2021-12-21 00:10 | NUR ---
Patient A/Ox4, resting comfortably in bed, no c/o pain, chest rise and fall symmetrical.
[2021-12-21] MEDS ORDERED: BACITRACIN OINT 500 UNITS/GM PKT TP ONE (00:30)
--- NOTE | 2021-12-21 02:10 | NUR ---
Patient A/Ox4, resting comfortably in bed, no c/o pain, chest rise and fall symmetrical.
--- NOTE | 2021-12-21 04:04 | NUR ---
Patient A/Ox4, resting comfortably in bed, no c/o pain, chest rise and fall symmetrical.
--- NOTE | 2021-12-21 06:35 | NUR ---
Patient A/Ox4, resting comfortably in bed, no c/o pain, chest rise and fall symmetrical.
--- NOTE | 2021-12-21 07:12 | NUR ---
Patient A/Ox4, resting comfortably in bed, no c/o pain, chest rise and fall symmetrical.
--- NOTE | 2021-12-21 07:13 | NUR ---
Change of shift report given to AM Shift Nurse Bisi. AM Shift Nurse Bisi verbalized understanding, no further questions.
--- NOTE | 2021-12-21 07:15 | NUR ---
Report recieved from MILA Tineo for transfer of care.
[2021-12-21 07:50] VITALS: BP 111/85
--- NOTE | 2021-12-21 07:50 | NUR ---
Patient discharged with v/s stable. Written and verbal after care instructions given. Patient verbalized understanding. Ambulatory with steady gait. All questions addressed prior to discharge. Advised to follow up with PMD.
--- NOTE | 2021-12-21 07:51 | NUR ---
The patient's care was reviewed and supervised by Ginette Kennedy RN.
== END 2021-12-21 07:50 | disposition home or self-care (01) ==
LOC: MED 21:48
DX: S01.81XA Laceration without foreign body of other part of head, initial encounter (principal); I10 Essential (primary) hypertension; I50.9 Heart failure, unspecified; F10.129 Alcohol abuse with intoxication, unspecified; Z79.899 Other long term (current) drug therapy; Y90.9 Presence of alcohol in blood, level not specified; V19.9XXA Pedal cyclist (driver) (passenger) injured in unspecified traffic accident, initial encounter; Y93.89 Activity, other specified; Y92.89 Other specified places as the place of occurrence of the external cause; Y99.8 Other external cause status
CPT/HCPCS: 70450; 70486; 72125; 90471; 90715; 99285

== ENCOUNTER 2022-03-29 14:10 | Emergency (ER) | payer OTHER ==
[~2022-03-29] VITALS: Ht 188 cm; Wt 74.8 kg
[2022-03-29 14:15] VITALS: BP 160/84
[2022-03-29] MEDS ORDERED: KEN.1O TP (16:39)
[2022-03-29] MEDS ORDERED: BEN50 PO (16:39)
[2022-03-29] MEDS ORDERED: PRED20TA5 PO (16:39)
[2022-03-29] MEDS ORDERED: ELIMC TP (16:39)
[2022-03-29] MEDS ORDERED: CEPH-588 PO (16:39)
[2022-03-29] MEDS ORDERED: diphenhydrAMINE 50 MG CAP PO ONE (16:40)
[2022-03-29] MEDS ORDERED: cephALEXin 500 MG CAP PO ONE (16:40)
[2022-03-29] MEDS ORDERED: predniSONE 20 MG TAB PO ONE (16:40)
--- NOTE | 2022-03-29 17:04 | NUR ---
Patient discharged with v/s stable. Written and verbal after care instructions ABOUT ATOPIC DERMATITIS, SCABIES given and explained. Patient alert, oriented and verbalized understanding of instructions. Ambulatory with steady gait. All questions addressed prior to discharge. ID band removed. Patient advised to follow up with PMD. Rx of BENADRYL, KELFEX, ELIMITE 5%, KENALOG 0.1%, DELTASONE given. Patient educated on indication of medication including possible reaction and side effects. Opportunity to ask questions provided and answered.
== END 2022-03-29 17:04 | disposition home or self-care (01) ==
LOC: MED 14:10
DX: L20.9 Atopic dermatitis, unspecified (principal); I50.9 Heart failure, unspecified; I10 Essential (primary) hypertension; Z79.899 Other long term (current) drug therapy; Z59.00 Homelessness unspecified
CPT/HCPCS: 99284; J7512; Q0163

== ENCOUNTER 2022-05-10 13:13 | Inpatient (IN) | payer OTHER ==
[~2022-05-10] VITALS: Ht 188 cm; Wt 79.4 kg
[~2022-05-10 13:13] MED LIST changes: +BEN50 PO; +ELIMC TP; +KEN.1O TP
[2022-05-10 13:16] VITALS: BP 141/100
--- NOTE | 2022-05-10 13:16 | NUR ---
BIBA to bed 12
[2022-05-10] MEDS ORDERED: methylPREDNISolone SS 125 MG/2 ML VIAL IVP ONE (13:20)
[2022-05-10] MEDS ORDERED: cefTRIAXone 1,000 MG in DEXT 5% MINI-BAG PLUS 50 ML IV ONE (13:20)
[2022-05-10] MEDS ORDERED: NACL 0.9% 1,000 ML IV SCH (13:20)
[2022-05-10] MEDS ORDERED: ALBUTEROL 0.083% 2.5 MG/3 ML NEBU INH ONE (13:20)
[2022-05-10] MEDS ORDERED: IPRATROPIUM 0.02% 0.5 MG/2.5 ML NEBU INH ONE (13:20)
--- NOTE | 2022-05-10 13:47 | NUR ---
ASSUMED PATIENT CARE, NURSING ASSESSMENT COMPLETED.
[2022-05-10] MEDS ORDERED: cefTRIAXone 1,000 MG VIAL ONE (13:50)
[2022-05-10 13:56] LABS: BASOPHILS # (AUTO) 0.1 K/uL (0.00-0.22); BASOPHILS % (AUTO) 1.1 % (0.0-2.0); EOSINOPHILS % (AUTO) 0.2 % (0.0-4.0); HEMATOCRIT 40.9 % (36-52); HEMOGLOBIN 13.6 g/dL (12.0-18.0); MEAN CORPUSCULAR HEMOGLOBIN 33 pg (27-31); MEAN CORPUSCULAR HGB CONC 33 g/dL (33-37); MEAN CORPUSCULAR VOLUME 98.9 fL (80-94); MONOCYTES # (AUTO) 0.7 K/uL (0.8-1.0); NEUTROPHILS # (AUTO) 6.5 K/uL (1.8-7.7); NEUTROPHILS % (AUTO) 77.7 % (42.2-75.2); PLATELET COUNT (AUTO) 258 K/uL (140-450); RED BLOOD CELL COUNT(AUTO) 4.13 MIL/uL (4.20-6.10); RED CELL DISTRIBUTION WIDTH 15.1 % (11.6-13.7); WHITE BLOOD COUNT (AUTO) 8.3 K/uL (4.8-10.8)
[2022-05-10] MEDS ORDERED: NACL 0.9% 1,000 ML IV ONE (14:05)
[2022-05-10 14:12] LABS: ANION GAP 14.2 (8-16); CARBON DIOXIDE 25.4 mmol/L (21-32); POTASSIUM 3.6 mmol/L (3.5-5.1); TOTAL BILIRUBIN 0.5 mg/dL (0.0-1.0)
[2022-05-10] MEDS ORDERED: ONDANSETRON 4 MG/2 ML VIAL IVP PRN (15:50)
[2022-05-10] MEDS ORDERED: ACETAMINOPHEN 325 MG TAB PO PRN (15:50)
[2022-05-10] MEDS ORDERED: ALBUTEROL 0.083% 2.5 MG/3 ML NEBU INH PRN (15:50)
[2022-05-10] MEDS ORDERED: LORazepam 2 MG/ML VIAL IVP PRN (15:50)
[2022-05-10 17:18] LABS: APPEARANCE,URINE CLEAR (CLEAR); BILIRUBIN,URINE NEGATIVE (NEGATIVE); BLOOD, URINE NEGATIVE (NEGATIVE); COLOR,URINE YELLOW (YELLOW); LEUKOCYTE ESTERASE ,URINE NEGATIVE (NEGATIVE); NITRITE, URINE NEGATIVE (NEGATIVE); UGLUCOSE NEGATIVE (NEGATIVE)
[2022-05-10 17:44] LABS: BARBITURATE, URINE NEGATIVE ng/ml (NEG <=200); BENZODIAZEPINE, URINE NEGATIVE ng/mL (NEG <=200); CANNABINOID, URINE POSITIVE ng/mL (NEG <=50); COCAINE, URINE NEGATIVE ng/mL (NEG <=300); OPIATE, URINE NEGATIVE ng/mL (NEG <=2000); PHENCYCLIDINE SCREEN,URINE NEGATIVE ng/mL (NEG <=25)
[2022-05-10] MEDS ORDERED: AZITHROMYCIN 500 MG INJ VIAL IV ONE (18:07)
[2022-05-10] MEDS: AZITHROMYCIN 500 MG in DEXTROSE 5% 250 ML IV SCH (18:08)
[2022-05-10] MEDS ORDERED: IPRATROPIUM 0.02% 0.5 MG/2.5 ML NEBU INH SCH (19:00)
[2022-05-10] MEDS ORDERED: ALBUTEROL 0.083% 2.5 MG/3 ML NEBU INH SCH (19:00)
--- NOTE | 2022-05-10 19:35 | NUR ---
RECEIVED IN BED 12 WITH C/O FEELING COLD, WARM BLANKETS HAVE BEEN GIVEN. RT IN PROGRESS
--- NOTE | 2022-05-10 20:25 | NUR ---
REPORT CALLED TO MILA KAUFMAN
--- NOTE | 2022-05-10 20:40 | NUR ---
TO 128B VIA GURNEY, ACCOMPANIED BY RNS
[2022-05-10 20:43] VITALS: BP 170/89
--- NOTE | 2022-05-10 20:43 | NUR ---
RECEIVED PT FROM ER A NEW ADMIT. PATIENT IS AWAKE, ALERT AND ORIENTED. DENIES PAIN. SOB ON EXERTION NOTED. ON SAT AT 94%. SKIN WARM AND DRY TO TOUCH. ORIENTED TO MST SET UP, CALL LIGHT PLACED WITHIN REACH, ENCOURAGED TO CALL IF ASSISTANCE IS NEEDED.
[2022-05-10] MEDS: hydrALAZINE 20 MG/ML VIAL IVP PRN (21:32)
[2022-05-11] VITALS: BP 140/66
[2022-05-11] MEDS: ALBUTEROL 0.083% 2.5 MG/3 ML NEBU INH SCH ×4 (01:00→19:00)
[2022-05-11] MEDS: IPRATROPIUM 0.02% 0.5 MG/2.5 ML NEBU INH SCH ×4 (01:00→19:00)
--- NOTE | 2022-05-11 01:23 | NUR ---
0120 PATIENT REFUSED BREATHING TREATMENT AT THIS TIME. PATIENT WANTED TO SLEEP. NO SOB NOTED.
--- NOTE | 2022-05-11 06:04 | NUR ---
PATIENT IS ASLEEP. NO DISTRESS NOTED. ALL NEEDS ATTENDED TO. SAFETY PRECAUTIONS MAINTAINED DURING THE HSIFT, CALL LIGHT REMAINS WITHIN REACH.
[2022-05-11 06:11] LABS: BASOPHILS % (AUTO) 0.1 % (0.0-2.0); HEMATOCRIT 38.5 % (36-52); HEMOGLOBIN 12.9 g/dL (12.0-18.0); LYMPHOCYTES # (AUTO) 0.7 K/uL (2.0-11.5); LYMPHOCYTES % (AUTO) 8.3 % (20.5-51.1); MEAN CORPUSCULAR HEMOGLOBIN 33 pg (27-31); MEAN CORPUSCULAR HGB CONC 34 g/dL (33-37); MEAN CORPUSCULAR VOLUME 99.4 fL (80-94); MONOCYTES # (AUTO) 0.3 K/uL (0.8-1.0); MONOCYTES % (AUTO) 3.4 % (1.7-9.3); NEUTROPHILS # (AUTO) 7.1 K/uL (1.8-7.7); NEUTROPHILS % (AUTO) 88.2 % (42.2-75.2); PLATELET COUNT (AUTO) 243 K/uL (140-450); RED BLOOD CELL COUNT(AUTO) 3.88 MIL/uL (4.20-6.10); RED CELL DISTRIBUTION WIDTH 14.8 % (11.6-13.7)
[2022-05-11 06:22] LABS: ANION GAP 16.5 (8-16); CARBON DIOXIDE 26.8 mmol/L (21-32); POTASSIUM 4.3 mmol/L (3.5-5.1)
[2022-05-11] MEDS ORDERED: MAG SULF 2000 MG/WATER PREMIX 50 ML IV SCH (06:45)
[2022-05-11 08:00] VITALS: BP 162/79
[2022-05-11] MEDS ORDERED: MAG SULF 2000 MG/WATER PREMIX 25 ML IV SCH (08:45)
[2022-05-11] MEDS: ENOXAPARIN 40 MG/0.4 ML SYR SUBQ SCH ×2 (09:00→10:54)
[2022-05-11] MEDS ORDERED: LORazepam 2 MG/ML VIAL IM/IVP PRN (12:25)
[2022-05-11] MEDS: diazePAM 5 MG TAB PO SCH ×2 (13:30→16:47)
--- NOTE | 2022-05-11 13:49 | NUR ---
OUT OF ROOM AT THIS TIME IN BATHROOM TARIFF INSPECTOR TO ATTEMPT HHN THERAPY AT A LATER TIME
[2022-05-11 16:00] VITALS: BP 165/82
--- NOTE | 2022-05-11 16:45 | NUR ---
PATIENT TOOK OUT OWN IV.
[2022-05-11] MEDS: AZITHROMYCIN 500 MG in DEXTROSE 5% 250 ML IV SCH (18:00)
--- NOTE | 2022-05-11 19:10 | NUR ---
RECEIVED PT IN BED AWAKE,ALERT AND ORIENTED. IV INSERTED IN THE RIGHT FOREARM #22 X 1 ATTEMPT, PT TOLERATED WELL. DENIES PAIN. DENIES SHORTNESS OF BREATH. SKIN WARM AND DRY TO TOUCH. SAFETY PRECAUTIONS IN BED, CALL LIGHT IN REACH.
[2022-05-11] MEDS ORDERED: MAG SULF 2000 MG/WATER PREMIX 100 ML IV ONE (19:22)
--- NOTE | 2022-05-11 22:57 | NUR ---
RT NOT AVAILABLE FOR 1900 Tx
[2022-05-11] MEDS: TEMAZEPAM 15 MG CAP PO PRN (22:59)
[2022-05-12] VITALS: BP 140/74
--- NOTE | 2022-05-12 06:35 | NUR ---
PATIENT IS ASLEEP. NO DISTRESS NOTED. ALL NEEDS ATTENDED TO. SAFETY PRECAUTIONS IN PLACE, CALL LIGHT REMAINS WITHIN REACH.
--- NOTE | 2022-05-12 08:04 | NUR ---
PATIENT WITH BREAKFAST TRAY NO DISTRESS NOTED RC TO ATTEMPT HHN THERAPY AT A LATER TIME
[2022-05-12 08:34] VITALS: BP 172/98
[2022-05-12] MEDS: ENOXAPARIN 40 MG/0.4 ML SYR SUBQ SCH (09:00)
[2022-05-12] MEDS: FOLIC ACID 1 MG TAB PO SCH (09:02)
[2022-05-12] MEDS: diazePAM 5 MG TAB PO SCH ×3 (09:02→18:35)
[2022-05-12] MEDS: MULTIVITAMIN 1 TAB PO SCH (09:02)
[2022-05-12] MEDS: THIAMINE 100 MG TAB PO SCH (09:03)
[2022-05-12] MEDS: NICOTINE TRANSD SYS 14 MG/24 HR PATCH TD SCH (09:03)
[2022-05-12] MEDS: IPRATROPIUM 0.02% 0.5 MG/2.5 ML NEBU INH SCH ×3 (09:26→19:00)
[2022-05-12] MEDS: ALBUTEROL 0.083% 2.5 MG/3 ML NEBU INH SCH ×3 (09:26→19:00)
--- NOTE | 2022-05-12 10:41 | NUR ---
PATIENT HAS BEEN SCREENED AND CATEGORIZED MODERATE NUTRITION RISK. PATIENT WILL BE SEEN WITHIN 3-5 DAYS OF ADMISSION. 05/10/22-05/15/[address]
[2022-05-12] MEDS ORDERED: COMMUNICATION ORDER MC PRN (15:55)
[2022-05-12 16:55] VITALS: BP 149/86
[2022-05-12] MEDS: AZITHROMYCIN 500 MG in DEXTROSE 5% 250 ML IV SCH (18:44)
--- NOTE | 2022-05-12 20:12 | NUR ---
1999 patient refuses hhntx. States he wants them during the day not at night. will call if he needs one. bs are clear and sats on room air are 97%. o2 on standby no sob noted at this time
[2022-05-12 21:00] VITALS: BP 149/88
--- NOTE | 2022-05-12 21:00 | NUR ---
NURSE REPORT NO REPORT WAS OBTAINED FROM [facility] NURSE LANDY BUT THIS NURSE ASSUMED CARE OF PATIENT.
--- NOTE | 2022-05-13 | NUR ---
NURSE NOTES ASLEEP WITHOUT ANY SXS OF PAIN OR DISCOMFORT.
[2022-05-13] MEDS: ALBUTEROL 0.083% 2.5 MG/3 ML NEBU INH SCH ×4 (00:56→14:35)
[2022-05-13] MEDS: IPRATROPIUM 0.02% 0.5 MG/2.5 ML NEBU INH SCH ×4 (00:56→14:35)
[2022-05-13 05:00] VITALS: BP 157/88
--- NOTE | 2022-05-13 05:00 | NUR ---
NURSE NOTES VSS. AFEB. NO C/O PAIN OR DISCOMFORT, EXCEPT FOR THE BP CUFF PRESSING ON HER ARM. EXPLAINED THAT HE NEEDS TO KEEP HIS ARM STILL SO BP CAN BE DONE.
--- NOTE | 2022-05-13 07:21 | NUR ---
NURSE REPORT REPORT GIVEN TH DAYSHI NURSE CORTES TO ASSUME CARE OF PATIENT. ALL QUESTIONS ANSWERED. MARIXA BUENROSTRO RN
--- NOTE | 2022-05-13 07:22 | NUR ---
RECEIVED PT FROM THERMOSTAT MAKER NURSE FOR CONTINUITY OF CARE. PT IN BED SLEEPING. SKIN WARM DRY TO TOUCH RESPIRATIONS EVEN AND UNLABORED. VISIBLE CHEST RISE/FALL, RESPIRATIONS EVEN AND UNLABORED. CALL LIGHT WITHIN REACH, ALL SAFETY PRECAUTIONS IN PLACE.
[2022-05-13 08:00] VITALS: BP 144/106
[2022-05-13] MEDS: ENOXAPARIN 40 MG/0.4 ML SYR SUBQ SCH (08:40)
[2022-05-13] MEDS: THIAMINE 100 MG TAB PO SCH (08:41)
[2022-05-13] MEDS: MULTIVITAMIN 1 TAB PO SCH (08:41)
[2022-05-13] MEDS: diazePAM 5 MG TAB PO SCH ×3 (08:42→17:12)
[2022-05-13] MEDS: FOLIC ACID 1 MG TAB PO SCH (08:42)
[2022-05-13] MEDS: NICOTINE TRANSD SYS 14 MG/24 HR PATCH TD SCH (08:55)
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
--- NOTE | 2022-05-13 10:31 | NUR ---
PT. ADMITTED WITH XEROSIS SKIN CONDITION TO BUTTOCKS AND HEELS WITH FISSURE SKIN, BUTTOCK SG WOUND SKIN DRY,RASHES INTACT, NO ERYTHEMA. POC DISCUSSED WITH PT. PT. VERBALIZES UNDERSTANDING RECOMMENDATIONS: -CLEANSE BUTTOCKS AND HEELS WITH MILD SOAP AND WATER, PAT DRY, APPLY ANTIFUNGAL CREAM BID AND TONI
[2022-05-13] MEDS ORDERED: ANTIFUNGAL CLEAR OINTMENT TP ONE (13:00)
--- NOTE | 2022-05-13 13:00 | NUR ---
DC PLANNING ASSESSMENT COMPLETE PLEASE REFER TO ASSESSMENT FOR DETAILS PT CURRENTLY HAS ORDER FOR SNF PLACEMENT, CM CURRENTLY WORKING ON IDENTIFYING PLACEMENT. PT IN AGREEMENT FOR SNF PLACEMENT. Addendum: 05/15/22 at 0854 by Sekou SANTOS Amended: Links added.
--- NOTE | 2022-05-13 13:40 | NUR ---
CALLED PHARMACY INQUIRING ABOUT ANTIFUNGAL OINTMENT DUE AT 1300. PHARMACY SAID THEY DO NOT HAVE IT AVAILABLE RIGHT TODAY, PER PHARMACY CALL BACK TOMORROW.
[2022-05-13 16:00] VITALS: BP 154/98
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
[2022-05-13] MEDS ORDERED: MAG SULF 2000 MG/WATER PREMIX 100 ML IV ONE (17:25)
[2022-05-13] MEDS: AZITHROMYCIN 500 MG in DEXTROSE 5% 250 ML IV SCH (17:27)
[2022-05-13] MEDS ORDERED: MAG SULF 2000 MG/WATER PREMIX 50 ML IV ONE (17:31)
[2022-05-13] MEDS ORDERED: MAG SULF 2000 MG/WATER PREMIX 50 ML IV SCH (18:00)
--- NOTE | 2022-05-13 19:10 | NUR ---
ENDORSED PT TO NOODLE CATALYST MAKER NURSE FOR CONTINUITY OF CARE. PT IN STABLE CONDITION.
--- NOTE | 2022-05-13 19:15 | NUR ---
RECEIVED PATIENT LYING ON THE BED, PATIENT IS AWAKE, ALERT AND ORIENTED, NO SIGNS OF DISTRESS NOTED, NO SIGNS OF PAIN/DISCOMFORT NOTED. PATIENT ASKED FOR SNACKS, GIVEN SNACKS. CALL LIGHT WITHIN REACH. ALL SAFETY MEASURES IN PLACE.
[2022-05-13 20:00] VITALS: BP 141/95
--- NOTE | 2022-05-14 00:19 | NUR ---
CHECKED ON PATIENT, IS ASLEEP, BREATHING EVEN AND NON LABORED. CALL LIGHT WITHIN REACH.
[2022-05-14] MEDS: ALBUTEROL 0.083% 2.5 MG/3 ML NEBU INH SCH ×4 (01:00→20:19)
[2022-05-14] MEDS: IPRATROPIUM 0.02% 0.5 MG/2.5 ML NEBU INH SCH ×4 (01:00→20:19)
--- NOTE | 2022-05-14 01:40 | NUR ---
patient refused hhntx. pt wants to sleep. will take hhntx during day
--- NOTE | 2022-05-14 07:05 | NUR ---
REPORT GIVEN TO JAYY MCCONNELL IN STABLE CONDITION. Addendum: 05/14/22 at 1926 by Tr Acevedo LVN LVN WRONG ENTRY: ENTERED WRONG TIME.
--- NOTE | 2022-05-14 07:05 | NUR ---
ENDORSED PATIENT TO DAY NURSE FOR CONTINUITY OF CARE. NEEDS MET THROUGHOUT THE SHIFT. PATIENT IS IN STABLE CONDITION.
--- NOTE | 2022-05-14 07:06 | NUR ---
ASSUMED CONTINUITY OF CARE. INITIAL ASSESSMENT DONE. KEEP COMFORTABLE ON BED. CALL LIGHT WITHIN REACH.
[2022-05-14 08:00] VITALS: BP 144/88
--- NOTE | 2022-05-14 08:00 | NUR ---
Patient's Plan of Care was discussed and reviewed with SWITCHBOARD MANAGER: NOEMI
[2022-05-14] MEDS: FOLIC ACID 1 MG TAB PO SCH (08:59)
[2022-05-14] MEDS: diazePAM 5 MG TAB PO SCH (08:59)
[2022-05-14] MEDS: THIAMINE 100 MG TAB PO SCH (09:00)
[2022-05-14] MEDS: MULTIVITAMIN 1 TAB PO SCH (09:00)
[2022-05-14] MEDS: NICOTINE TRANSD SYS 14 MG/24 HR PATCH TD SCH (09:01)
[2022-05-14] MEDS: ENOXAPARIN 40 MG/0.4 ML SYR SUBQ SCH (09:06)
[2022-05-14] MEDS: ANTIFUNGAL CLEAR OINTMENT TP SCH (13:31)
[2022-05-14] MEDS: diazePAM 2 MG TAB PO SCH ×2 (13:34→17:07)
--- NOTE | 2022-05-14 13:40 | NUR ---
WENT TO BATHROOM WITHOUT ASSISTANCE. TOLERATED WELL.
--- NOTE | 2022-05-14 14:31 | NUR ---
05/14/22 RD INITIAL ASSESSMENT COMPLETED PLEASE REFER TO NUTRITION ASSESSMENT UNDER CARE ACTIVITY FOR ESTIMATED NUTRITIONAL NEEDS. 1. RECOMMEND ADDING CARDIAC TO REGULAR DIET 2. MONITOR LAB VALUES, GI, PO INTAKE. 3. RD TO FOLLOW-UP 7 DAYS, LOW RISK REVIEWED BY JUAN VILLANUEVA RD
[2022-05-14 16:00] VITALS: BP 138/75
[2022-05-14] MEDS: AZITHROMYCIN 500 MG in DEXTROSE 5% 250 ML IV SCH (17:38)
--- NOTE | 2022-05-14 19:05 | NUR ---
REPORT GIVEN TO JAYY GERMAIN IN STABLE CONDITION.
--- NOTE | 2022-05-14 19:10 | NUR ---
ASSUMED CARE FOR PATIENT. PATIENT IS ALERT AND ORIENTED, DENIES PAIN, DENIES SOB UPON ASSESSMENT. ALL SAFETY MEASURES IN PLACE.
[2022-05-14] MEDS: TEMAZEPAM 15 MG CAP PO PRN (21:55)
--- NOTE | 2022-05-14 21:55 | NUR ---
PATIENT C/O NOT ABLE TO SLEEP, PRN MED FOR INSOMNIA GIVEN ORDERED.
[2022-05-14 22:00] VITALS: BP 145/91
--- NOTE | 2022-05-14 23:11 | NUR ---
CHECKED ON PATIENT, PATIENT IS ASLEEP, NO SIGNS OF DISTRESS NOTED, NO SIGNS OF PAIN NOTED. CALL LIGHT WITHIN REACH.
[2022-05-15] MEDS: ANTIFUNGAL CLEAR OINTMENT TP SCH ×2 (01:28→12:28)
--- NOTE | 2022-05-15 01:28 | NUR ---
ANTIFUNGAL OINTMENT APPLIED TO BUTTOCKS AND HEELS ORDERED.
[2022-05-15 04:00] VITALS: BP 151/82
[2022-05-15] MEDS: hydrALAZINE 20 MG/ML VIAL IVP PRN (04:09)
--- NOTE | 2022-05-15 04:09 | NUR ---
PRN APRESOLINE GIVEN, BP 151/82, HR 88.
--- NOTE | 2022-05-15 07:20 | NUR ---
ASSUMED CONTINUITY OF CARE. INITIAL ASSESSMENT DONE. KEEP COMFORTABLE ON BED. CALL LIGHT WITHIN REACH.
--- NOTE | 2022-05-15 07:30 | NUR ---
ENDORSED PATIENT TO DAY NURSE FOR CONTINUITY OF CARE. PATIENT IN STABLE CONDITION. NEEDS MET THROUGHOUT THE SHIFT.
[2022-05-15 08:00] VITALS: BP 156/105
[2022-05-15] MEDS: IPRATROPIUM 0.02% 0.5 MG/2.5 ML NEBU INH SCH ×3 (08:36→19:00)
[2022-05-15] MEDS: ALBUTEROL 0.083% 2.5 MG/3 ML NEBU INH SCH ×3 (08:37→19:00)
[2022-05-15] MEDS: THIAMINE 100 MG TAB PO SCH (08:43)
[2022-05-15] MEDS: FOLIC ACID 1 MG TAB PO SCH (08:44)
[2022-05-15] MEDS: MULTIVITAMIN 1 TAB PO SCH (08:44)
[2022-05-15] MEDS: diazePAM 2 MG TAB PO SCH ×3 (08:44→17:11)
[2022-05-15] MEDS: ENOXAPARIN 40 MG/0.4 ML SYR SUBQ SCH (08:47)
[2022-05-15] MEDS: NICOTINE TRANSD SYS 14 MG/24 HR PATCH TD SCH (09:15)
[2022-05-15 10:30] VITALS: BP 150/97
[2022-05-15 12:00] VITALS: BP 140/82
--- NOTE | 2022-05-15 14:20 | NUR ---
DR. ARCE CAME INFORMED THAT PHARMACY WANT TO VERIFY ZITHROMAX IVPB CONTINUATION. NO ORDER RECEIVED AND SAID THAT HE'LL CHECK IT.
[2022-05-15 16:00] VITALS: BP 158/87
--- NOTE | 2022-05-15 19:25 | NUR ---
BEDSIDE REPORT GIVEN TO CHRISTIAN MATTHEWS. IN STABLE CONDITION.
--- NOTE | 2022-05-15 19:30 | NUR ---
RECEIVED REPORT FROM DAY SHIFT NURSE NOEMI FOR CONTINUITY OF CARE. PATIENT IS A&O X4. PATIENT IS ON ROOM AIR (2L NC PRN IF O2 92% OR LESS), BREATHING IS NORMAL WITH SYMMETRICAL RISE AND FALL OF CHEST. IV IS A 22G LFA; NO FLUIDS RUNNING AT THIS TIME (SALINE LOCKED). PATIENT IS AWAKE LYING SEMI-FOWLERS IN BED. BED IS IN LOWEST POSITION, WHEELS LOCKED, CALL LIGHT IN PLACE. WILL CONTINUE TO OBSERVE PATIENT.
[2022-05-15 20:00] VITALS: BP 114/70
[2022-05-15] MEDS: TEMAZEPAM 15 MG CAP PO PRN (20:33)
--- NOTE | 2022-05-15 20:45 | NUR ---
PATIENT REQUESTED SLEEP AID TO GO TO SLEEP. CHECKED PATIENT'S VITALS AND CHECKED PATIENT'S CHART. MEDICATION WAS APPROPRIATE TO ADMINISTER. ADMINISTERED RESTORIL TO PATIENT. PATIENT TOLERATED WELL WITH NO DIFFICULTY SWALLOWING. WILL CONTINUE TO OBSERVE PATIENT.
[2022-05-16] MEDS: ANTIFUNGAL CLEAR OINTMENT TP SCH (00:40)
--- NOTE | 2022-05-16 02:00 | NUR ---
PATIENT'S SCRATCHES ON BUTTOCKS AND BACK WERE CLEANED WITH SOAP AND WATER, AND THEN PAT DRY WITH A TOWEL. AFTERWARDS THE ANTIFUNGAL MEDICATION WAS APPLIED TO THE AREAS. PATIENT REFUSED TO HAVE HEELS OF FEET CLEANED OR MEDICATED. OTHERWISE, PATIENT WAS COOPERATIVE DURING CLEANING. WILL CONTINUE TO OBSERVE PATIENT.
[2022-05-16 04:00] VITALS: BP 148/85
--- NOTE | 2022-05-16 04:30 | NUR ---
PATIENT SLEPT THROUGHOUT THE NIGHT. BREATHING IS NORMAL WITH SYMMETRICAL RISE AND FALL OF CHEST. WILL CONTINUE TO OBSERVE PATIENT.
[2022-05-16] MEDS: IPRATROPIUM 0.02% 0.5 MG/2.5 ML NEBU INH SCH (07:00)
[2022-05-16] MEDS: ALBUTEROL 0.083% 2.5 MG/3 ML NEBU INH SCH (07:00)
--- NOTE | 2022-05-16 07:18 | NUR ---
ENDORSED TO DAY SHIFT NURSE BRADLY FOR CONTINUITY OF CARE. PATIENT IS STABLE.
[2022-05-16] MEDS: THIAMINE 100 MG TAB PO SCH (09:22)
[2022-05-16] MEDS: FOLIC ACID 1 MG TAB PO SCH (09:22)
[2022-05-16] MEDS: MULTIVITAMIN 1 TAB PO SCH (09:23)
[2022-05-16] MEDS: diazePAM 2 MG TAB PO SCH (09:23)
[2022-05-16] MEDS: hydrALAZINE 20 MG/ML VIAL IVP PRN (09:24)
[2022-05-16] MEDS: NICOTINE TRANSD SYS 14 MG/24 HR PATCH TD SCH (09:25)
[2022-05-16] MEDS: ENOXAPARIN 40 MG/0.4 ML SYR SUBQ SCH (09:26)
--- NOTE | 2022-05-16 10:20 | NUR ---
RECEIVED REPORT FROM [facility] NURSEJOSHUA. PT A/O X4. ABLE TO MAKE NEEDS KNOWN. DENIES PAIN. NO SOB NOTED. ON RA. O2 @ 95%. AMBULATORY WITH STEADY GAIT. NEEDS ALL MET AT THIS TIME. ALL SAFETY MEASURES IN PLACE.
[2022-05-16 11:57] VITALS: BP 152/78
--- NOTE | 2022-05-16 12:17 | NUR ---
PT EATING LUNCH. PT STABLE. DISCHARGE INSTRUCTIONS GIVEN. PT VERBALIZED UNDERSTANDING. IV DISCONTINUED, CATHETER INTACT, NO ACTIVE BLEEDING.
--- NOTE | 2022-05-16 13:00 | NUR ---
PT AMBULATED OUT WITH STEADY GAIT. STATES HIS RIDE IS HERE TO PICK HIM UP.
--- NOTE | 2022-05-21 16:11 | NUR ---
JANEE AG CALLED DR ARIAS'S OFFICE [address] [place] [id number]. SPOKE WITH JONELLE AND MADE APPOINTMENT FOR 06/03/2022 AT 1000. CALLED PT TO INFORM HIM BUT ALL CONTACTS WERE BAD SO CALLED SIGNIFICANT OTHER RENNY WHO THEN GAVE ME A CONTACT NUMBER AND LEFT A MESSAGE FOR PT
== END 2022-05-16 12:10 | DRG 140 ==
LOC: MED 13:13 → MTU 15:52 → MMU 19:49 → OBSVTOIN 05-12 09:14
PROVIDERS: ADMIT Hospitalist; ATTEND Hospitalist
DX: J44.1 Chronic obstructive pulmonary disease with (acute) exacerbation (principal); J96.01 Acute respiratory failure with hypoxia; R65.11 Systemic inflammatory response syndrome (SIRS) of non-infectious origin with acute organ dysfunction; I11.0 Hypertensive heart disease with heart failure; I50.9 Heart failure, unspecified; R65.10 Systemic inflammatory response syndrome (SIRS) of non-infectious origin without acute organ dysfunction; F10.139 Alcohol abuse with withdrawal, unspecified; F17.210 Nicotine dependence, cigarettes, uncomplicated; Z20.822 Contact with and (suspected) exposure to COVID-19; J45.909 Unspecified asthma, uncomplicated; Z59.00 Homelessness unspecified; Z79.899 Other long term (current) drug therapy
CPT/HCPCS: G0378 ×33; 36415; 71045; 80048; 80053; 80305; 81003; 83605; 83735; 83880; 84484; 85025; 87040; 87081; 87086; 94640; 97110; 97112; 97116; 97163-GP; 97530; G0482; J0360; J0456; J0696; J1650; J2930; J3475; J7060; J7613; J7644; Q0092

== ENCOUNTER 2022-08-09 11:30 | Emergency (ER) | payer OTHER ==
[~2022-08-09] VITALS: Ht 177.8 cm; Wt 76.3 kg
[2022-08-09 11:43] VITALS: BP 144/80
--- NOTE | 2022-08-09 11:49 | NUR ---
AMBULATED PATIENT TO BED 11
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
--- NOTE | 2022-08-09 12:26 | NUR ---
SO AT FOR EVAL.
[2022-08-09 12:33] VITALS: BP 111/53
[2022-08-09] MEDS ORDERED: LIDOCAINE 1% 500 MG/ 50 ML VIAL INJ ONE (12:40)
[2022-08-09] MEDS ORDERED: LIDOCAINE MPF 1% 5 ML ONE ×2 (12:40)
[2022-08-09] MEDS ORDERED: SULF-59 PO (13:05)
[2022-08-09] MEDS ORDERED: IBUP-2213 PO (13:08)
--- NOTE | 2022-08-09 13:18 | NUR ---
I&D COMPLETE BY SO. PENDING D/C. PT VERB UNDERSTANDING OF VERBAL D/C INSTRUCTION PROVIDED
== END 2022-08-09 12:33 | disposition home or self-care (01) ==
LOC: MED 11:30
DX: L02.31 Cutaneous abscess of buttock (principal); L03.317 Cellulitis of buttock; L02.415 Cutaneous abscess of right lower limb; L03.115 Cellulitis of right lower limb; I11.0 Hypertensive heart disease with heart failure; I50.9 Heart failure, unspecified; J45.909 Unspecified asthma, uncomplicated; Z86.73 Personal history of transient ischemic attack (TIA), and cerebral infarction without residual deficits; Z79.1 Long term (current) use of non-steroidal anti-inflammatories (NSAID); Z79.2 Long term (current) use of antibiotics
CPT/HCPCS: 10060; 99284; J2001